=== PATIENT | male | born 1985 | race Caucasian/White ===

== ENCOUNTER 2019-01-05 11:26 | Emergency (ER) | payer SELFPAY ==
[2019-01-05] MEDS ORDERED: INSULIN -REGULAR HUMAN 50 UNIT/0.5 ML ML ONE (12:33)
[2019-01-05] MEDS ORDERED: ONDANSETRON 4 MG/2 ML VIAL ONE (12:33)
[2019-01-05] MEDS ORDERED: NA CHLORIDE 0.9% 1,000 ML ONE (12:33)
[2019-01-05 12:37] LABS: Absolute Lymphocytes (CBC) 1.6 K/uL (0.7-4.9); Basophils % 0.6 % (0-1.3); Lymphocytes % 18.6 % (15.3-44.8); MPV 9.9 fL (7.6-11.3); RBC Red Blood Cell Count 5.98 M/uL (4.33-5.43)
[2019-01-05 12:57] LABS: ALT/SGPT 29 U/L (12-78); AST/SGOT 17 U/L (15-37); Albumin 3.6 g/dL (3.4-5.0); Alkaline Phosphatase 113 U/L (45-117); BUN Blood Urea Nitrogen 14 mg/dL (7-18); Bicarbonate 26 mmol/L (21-32); Bilirubin Direct 0.2 mg/dL (0-0.2); Bilirubin Total 0.7 mg/dL (0.2-1.0); Glucose Level 363 mg/dL (74-106); Lipase 264 U/L (73-393); Potassium 4.2 mmol/L (3.5-5.1); Protein, Total 6.7 g/dL (6.4-8.2); Sodium Level 134 mmol/L (136-145)
[2019-01-05 12:59] LABS: Urine Blood NEGATIVE (NEG); Urine Glucose 2+ (NEG); Urine Protein NEGATIVE (NEG); Urine Specific Gravity 1.015 (1.005-1.030)
--- NOTE | 2019-01-05 14:20 | ER ---
Nurse's Notes [facility] Name: Max Perdomo Age: 33 yrs Sex: Male : 1985 Arrival Date: 01/05/2019 Time: 11:28 Bed 5 Private MD: Diagnosis: Hyperglycemia, unspecified Presentation: 01/05 11:48 Presenting complaint: Patient states: BS is high, over 600 at home, out of metformin iw and glimepride, was switched to some pens and ran out, has been out for about a week, was laid off work so he doesn't have insurance, feeling vomiting. Transition of care: patient was not received from another setting of care. Onset of symptoms was January 05, 2019. Risk Assessment: Do you want to hurt yourself or someone else? Patient reports no desire to harm self or others. Initial Sepsis Screen: Does the patient meet any 2 criteria? No. Patient's initial sepsis screen is negative. Does the patient have a suspected source of infection? No. Patient's initial sepsis screen is negative. Care prior to arrival: None. 11:48 Acuity: KAILA 2 iw 11:48 Method Of Arrival: Ambulatory iw Historical: - Allergies: 11:51 No Known Allergies; rv - PMHx: 11:51 Diabetes - IDDM; rv - PSHx: 11:51 None; rv - Immunization history:: Adult Immunizations not up to date. - Social history:: Smoking status: Patient uses tobacco products, smokes one pack cigarettes per day. - Ebola Screening: : Patient negative for fever greater than or equal to 101.5 degrees Fahrenheit, and additional compatible Ebola Virus Disease symptoms Patient denies exposure to infectious person Patient denies travel to an Ebola-affected area in the 21 days before illness onset No symptoms or risks identified at this time. Screenin:43 Abuse screen: Denies threats or abuse. Denies injuries from another. Nutritional ph screening: No deficits noted. Tuberculosis screening: No symptoms or risk factors identified. Fall Risk None identified. Assessment: 12:42 General: Appears in no apparent distress. uncomfortable, slender, well groomed, ph Behavior is calm, cooperative, appropriate for age, Denies fever. Pain: Complains of pain in abdomen. Neuro: Level of Consciousness is awake, alert, obeys commands, Oriented to person, place, time, situation. Cardiovascular: Capillary refill < 3 seconds in bilateral fingers Patient's skin is warm and dry. Respiratory: Airway is patent Respiratory effort is even, unlabored, Respiratory pattern is regular, symmetrical. GI: Reports lower abdominal pain, upper abdominal pain, nausea, vomiting, Patient currently denies diarrhea. Derm: Skin is intact, Skin is pink, warm \T\ dry. Musculoskeletal: Circulation, motion, and sensation intact. Range of motion: intact in all extremities. 12:50 Reassessment: order received for insulin IVP, see MAR, no insulin in Pyxis, pharmacy ph notified. 13:25 Reassessment: Patient appears in no apparent distress at this time. Patient and/or ph family updated on plan of care and expected duration. Pain level reassessed. Patient is alert, oriented x 3, equal unlabored respirations, skin warm/dry/pink. Attempted to pull insulin from pyxis, unable to retrieve d/t drawer malfunction, pharmacy notified. 14:50 Reassessment: Patient appears in no apparent distress at this time. Patient and/or ph family updated on plan of care and expected duration. Pain level reassessed. Patient is alert, oriented x 3, equal unlabored respirations, skin warm/dry/pink. BGL decreased to 270 after IV fluids, w/out insulin, preparing pt for d/c. Vital Signs: 11:51 BP 147 / 102; Pulse 71; Resp 16; Temp 98.1; Pulse Ox 100% on R/A; Weight 65.77 kg; iw Height 5 ft. 6 in. (167.64 cm); Pain 7/10; 12:44 BP 134 / 92; Pulse 56; Resp 20; Pulse Ox 100% on R/A; ph 14:15 BP 128 / 86; Pulse 61; Resp 16; Temp 97.6; Pulse Ox 99% on R/A; ph 11:51 Body Mass Index 23.40 (65.77 kg, 167.64 cm) iw ED Course: 11:28 Patient arrived in ED. rg4 11:50 Triage completed. rv 11:51 Arm band placed on. iw 11:52 Aliza Pfeiffer RN is Primary Nurse. ph 11:53 Jonnie Avila PA is PHCP. jr8 11:53 Sonny Rivera MD is Attending Physician. jr8 12:25 Initial lab(s) drawn, by me, sent to lab. Inserted saline lock: 20 gauge in right ph antecubital area, using aseptic technique. Blood collected. 12:44 Patient has correct armband on for positive identification. Bed in low position. Call ph light in reach. Side rails up X 1. cartoon animator on. Pulse ox on. NIBP on. Door closed. Noise minimized. Lights dimmed. Warm blanket given. Pillow given. Head of bed lowered. 15:00 No provider procedures requiring assistance completed. IV discontinued, intact, ph bleeding controlled, No redness/swelling at site. Pressure dressing applied. Administered Medications: 12:41 Drug: NS 0.9% 1000 ml Route: IV; Rate: 1000 ml; Site: right antecubital; ph 14:20 Follow up: Response: No adverse reaction; Blood sugar is lowered; IV Status: Completed ph infusion; IV Intake: 1000ml 12:41 Drug: Zofran 4 mg Route: IVP; Site: right antecubital; ph 13:30 Follow up: Response: No adverse reaction ph 14:59 Not Given (Physician Discretion): Insulin Regular Human 10 units IVP once iw Intake: 14:20 IV: 1000ml; Total: 1000ml. ph Outcome: 14:20 Discharge ordered by . jrSuhdeer 15:21 Patient left the ED. iw 15:21 Discharged to home ambulatory. ph 15:21 Condition: improved 15:21 Discharge instructions given to patient, Instructed on discharge instructions, follow up and referral plans. medication usage, Demonstrated understanding of instructions, follow-up care, medications, Prescriptions given X 2. Signatures: Rosanna Trujillo, JARED RN Jonnie Avila PA PA jr8 Aliza Pfeiffer RN RN Ramonita Patel rg4 Dereck Smith RN RN rv Corrections: (The following items were deleted from the chart) 57 11:48 Presenting complaint: Patient states: BS is high, over 600 at home, out of iw metformin and glimepride, was switched to some pens and ran out, has been out for about a week, was laid off work so he doesn't have insurance, feeling vomiting rv 11:57 11:48 Transition of care: patient was not received from another setting of care. rv iw 11:57 11:48 Onset of symptoms was January 05, 2019 [facility] 11:48 Initial Sepsis Screen: Does the patient meet any 2 criteria? No. Patient's iw initial sepsis screen is negative. Does the patient have a suspected source of infection? No. Patient's initial sepsis screen is negative. 11:48 Risk Assessment: Do you want to hurt yourself or someone else? Patient reports no iw desire to harm self or others. 11:48 Care prior to arrival: None. [facility] 11:48 Method Of Arrival: Ambulatory [facility] 11:48 Acuity: KAILA 2 [facility] 11:51 Ebola Screening: Patient negative for fever greater than or equal to 101.5 iw degrees Fahrenheit, and additional compatible Ebola Virus Disease symptoms Patient denies exposure to infectious person Patient denies travel to an Ebola-affected area in the 21 days before illness onset No symptoms or risks identified at this time 11:51 BP 147 / 102; Pulse 71bpm; Resp 16bpm; Pulse Ox 100% RA; Temp 98.1F; 65.77 kg; iw Height 5 ft. 6 in.; BMI: 23.4; Pain 7/10; rv 12:16 11:51 Social history: Smoking status: Patient uses tobacco products, smokes one pack iw cigarettes per day. 12 11:51 Immunization history: Adult Immunizations not up to date, [facility] 12:16 11:51 Arm band placed on [facility] 16:25 14:50 Reassessment: Patient appears in no apparent distress at this time. Patient ph and/or family updated on plan of care and expected duration. Pain level reassessed. Patient is alert, oriented x 3, equal unlabored respirations, skin warm/dry/pink. ph
--- NOTE | 2019-01-05 14:21 | EDPHYS ---
Physician Documentation [facility] Name: Max Perdomo Age: 33 yrs Sex: Male : 1985 Arrival Date: 01/05/2019 Time: 11:28 Bed 5 Private MD: ED Physician Sonny Rivera HPI: 01/05 12:09 This 33 yrs old Male presents to ER via Ambulatory with complaints of jr8 Diabetic Problem. 12:09 Onset: The symptoms/episode began/occurred gradually, 2 day(s) ago. Associated signs jr8 and symptoms: Pertinent positives: vomiting. Modifying factors: The patient symptoms are alleviated by nothing, the patient symptoms are aggravated by eating food. The patient has experienced a previous episode. The patient has not recently seen a physician. Patient with insulin dependent diabetes. Stated that he has not been regulating his glucose as well as he should be because he lost insurance recently. Stated that his sugar has read high for past couple of days. Not feeling well and wanted to be checked out . Historical: - Allergies: 11:51 No Known Allergies; rv - PMHx: 11:51 Diabetes - IDDM; rv - PSHx: 11:51 None; rv - Immunization history:: Adult Immunizations not up to date. - Social history:: Smoking status: Patient uses tobacco products, smokes one pack cigarettes per day. - Ebola Screening: : Patient negative for fever greater than or equal to 101.5 degrees Fahrenheit, and additional compatible Ebola Virus Disease symptoms Patient denies exposure to infectious person Patient denies travel to an Ebola-affected area in the 21 days before illness onset No symptoms or risks identified at this time. ROS: 12:09 Eyes: Negative for injury, pain, redness, and discharge, ENT: Negative for injury, jr8 pain, and discharge, Neck: Negative for injury, pain, and swelling, Cardiovascular: Negative for chest pain, palpitations, and edema, Respiratory: Negative for shortness of breath, cough, wheezing, and pleuritic chest pain, Back: Negative for injury and pain, MS/Extremity: Negative for injury and deformity, Skin: Negative for injury, rash, and discoloration, Neuro: Negative for headache, weakness, numbness, tingling, and seizure. 12:09 Abdomen/GI: Positive for abdominal pain, nausea and vomiting, Negative for diarrhea, constipation, abdominal cramps, abdominal distension. 12:09 Endocrine: Negative for polydipsia, polyphagia, polyuria. Exam: 12:09 Eyes: Pupils equal round and reactive to light, extra-ocular motions intact. Lids and jr8 lashes normal. Conjunctiva and sclera are non-icteric and not injected. Cornea within normal limits. Periorbital areas with no swelling, redness, or edema. ENT: Nares patent. No nasal discharge, no septal abnormalities noted. Tympanic membranes are normal and external auditory canals are clear. Oropharynx with no redness, swelling, or masses, exudates, or evidence of obstruction, uvula midline. Mucous membranes moist. Neck: Trachea midline, no thyromegaly or masses palpated, and no cervical lymphadenopathy. Supple, full range of motion without nuchal rigidity, or vertebral point tenderness. No Meningismus. Cardiovascular: Regular rate and rhythm with a normal S1 and S2. No gallops, murmurs, or rubs. Normal PMI, no JVD. No pulse deficits. Respiratory: Lungs have equal breath sounds bilaterally, clear to auscultation and percussion. No rales, rhonchi or wheezes noted. No increased work of breathing, no retractions or nasal flaring. Abdomen/GI: Soft, non-tender, with normal bowel sounds. No distension or tympany. No guarding or rebound. No evidence of tenderness throughout. Back: No spinal tenderness. No costovertebral tenderness. Full range of motion. Skin: Warm, dry with normal turgor. Normal color with no rashes, no lesions, and no evidence of cellulitis. MS/ Extremity: Pulses equal, no cyanosis. Neurovascular intact. Full, normal range of motion. Neuro: Awake and alert, GCS 15, oriented to person, place, time, and situation. Cranial nerves II-XII grossly intact. Motor strength 5/5 in all extremities. Sensory grossly intact. Cerebellar exam normal. Normal gait. Vital Signs: 11:51 BP 147 / 102; Pulse 71; Resp 16; Temp 98.1; Pulse Ox 100% on R/A; Weight 65.77 kg; iw Height 5 ft. 6 in. (167.64 cm); Pain 7/10; 12:44 BP 134 / 92; Pulse 56; Resp 20; Pulse Ox 100% on R/A; ph 14:15 BP 128 / 86; Pulse 61; Resp 16; Temp 97.6; Pulse Ox 99% on R/A; ph 11:51 Body Mass Index 23.40 (65.77 kg, 167.64 cm) iw MDM: 11:54 Patient medically screened. jr8 13:11 Differential diagnosis: Hyperglycemia, HHNK, DKA, dehydration, electrolyte jr8 abnormalities. Data reviewed: vital signs, nurses notes, lab test result(s). Data interpreted: Pulse oximetry: on room air is 100 %. Interpretation: normal. Counseling: I had a detailed discussion with the patient and/or guardian regarding: the historical points, exam findings, and any diagnostic results supporting the discharge/admit diagnosis, lab results, the need for outpatient follow up, a family practitioner, to return to the emergency department if symptoms worsen or persist or if there are any questions or concerns that arise at home. Response to treatment: the patient's symptoms have mildly improved after treatment, patient is well hydrated. ED course: glucose improved . 01/05 12:00 Order name: Basic Metabolic Panel; Complete Time: 13:37 8 01/05 12:00 Order name: CBC with Diff; Complete Time: 12:44 [facility] 01/05 12:00 Order name: Creatinine for Radiology; Complete Time: 12:54 8 01/05 12:00 Order name: Hepatic Function; Complete Time: 13:37 8 01/05 12:00 Order name: Lipase; Complete Time: 13:37 [facility] 01/05 12:00 Order name: Magnesium; Complete Time: 13:37 [facility] 01/05 12:00 Order name: IV Saline Lock; Complete Time: 12:49 [facility] 01/05 12:00 Order name: Ketone, Serum; Complete Time: 13:37 [facility] 01/05 12:11 Order name: Glucose, Ancillary Testing; Complete Time: 12:12 [facility]MS 01/05 12:12 Order name: Urine Dipstick--Ancillary (enter results); Complete Time: 13:11 01/05 14:30 Order name: Glucose, Ancillary Testing; Complete Time: 14:35 [facility] 01/05 12:00 Order name: Labs collected and sent; Complete Time: 12:49 [facility] 01/05 12:00 Order name: Urine Dipstick-Ancillary (obtain specimen); Complete Time: 12:11 [facility] 01/05 14:07 Order name: Glucose Level; Complete Time: 14:30 jr8 Administered Medications: 12:41 Drug: NS 0.9% 1000 ml Route: IV; Rate: 1000 ml; Site: right antecubital; ph 14:20 Follow up: Response: No adverse reaction; Blood sugar is lowered; IV Status: Completed ph infusion; IV Intake: 1000ml 12:41 Drug: Zofran 4 mg Route: IVP; Site: right antecubital; ph 13:30 Follow up: Response: No adverse reaction ph 14:59 Not Given (Physician Discretion): Insulin Regular Human 10 units IVP once iw Disposition: 15:46 Co-signature as Attending Physician, Sonny Rivera MD. rn Disposition: 01/05/19 14:20 Discharged to Home. Impression: Hyperglycemia, unspecified. - Condition is Stable. - Discharge Instructions: Hyperglycemia, Blood Glucose Monitoring, Adult. - Prescriptions for Metformin 500 mg Oral Tablet - take 1 tablet by ORAL route 2 times per day .; 30 tablet. Glimepiride 2 mg Oral Tablet - take 1 tablet by ORAL route once daily; 30 tablet. - Medication Reconciliation Form, Thank You Letter, Antibiotic Education, Prescription Opioid Use form. - Follow up: Private Physician; When: 2 - 3 days; Reason: Recheck today's complaints, Continuance of care, Re-evaluation by your physician. - Problem is new. - Symptoms have improved. Signatures: Dispatcher [employer] Rosanna Menendez RN RN iw Nieto, Roman, MD MD rn Roszak, Josh, PA PA jr8 Aliza Pfeiffer RN RN Dereck Smith RN RN rv Corrections: (The following items were deleted from the chart) 11:58 11:51 Ebola Screening: Patient negative for fever greater than or equal to 101.5 iw degrees Fahrenheit, and additional compatible Ebola Virus Disease symptoms Patient denies exposure to infectious person Patient denies travel to an Ebola-affected area in the 21 days before illness onset No symptoms or risks identified at this time rv 12:16 11:51 Social history: Smoking status: Patient uses tobacco products, smokes one pack iw cigarettes per day. rv 12:16 11:51 Immunization history: Adult Immunizations not up to date, rv iw 15:21 14:20 01/05/2019 14:20 Discharged to Home. Impression: Hyperglycemia, unspecified. iw Condition is Stable. Forms are Medication Reconciliation Form, Thank You Letter, Antibiotic Education, Prescription Opioid Use. Follow up: Private Physician; When: 2 - 3 days; Reason: Recheck today's complaints, Continuance of care, Re-evaluation by your physician. Problem is new. Symptoms have improved. jr8
[2019-01-05 15:41] VITALS: TEMP 98.1; O2SAT 100
[2019-01-05 15:43] VITALS: BP 134/92
== END 2019-01-05 15:21 | disposition home or self-care (01) ==
LOC: ER 11:26
DX: E11.65 Type 2 diabetes mellitus with hyperglycemia (principal); F17.210 Nicotine dependence, cigarettes, uncomplicated
CPT/HCPCS: 36415; 80048; 80076; 81003; 82010; 82947; 83690; 83735; 85025; 96361; 96374; 99284; J2405; J7030

== ENCOUNTER 2020-01-29 14:41 | Emergency (ER) | payer SELFPAY ==
--- OUTSIDE RECORDS SUMMARY | 2020-01-29 14:42 | XMS REPORT | Summary of Care ---
:1985 Author Organization [facility] Address [address] [place] [address] Care Team Providers Name Role Phone Pcp, Does Not Have A Primary Care Provider Encounter Details Date Type Department Care Team Description 01/25/2020 Orders Only [facility] Doctor Unassigned, No [address] [facility] [place] [address] [address] [place] [address] Allergies No Known Allergiesdocumented as of this encounter (statuses as of 01/25/2020) Medications Medication Sig Dispensed Refills Start Date End Date Status sulfamethoxazole-tri Take 1 tablet by 20 tablet 0 07/19/2016 Active methoprim 800-160 mg mouth every 12 per tablet (twelve) hours. mupirocin Apply to affected area(s) 3 (three) times daily. Apply under nails and in nostrils. 1 Tube 0 07/19/2016 Active (BACTROBAN) 2 % This medication is for frequ ent recurrent skin infections in a diabetic. cream documented as of this encounter (statuses as of 01/25/2020) Active Problems No known active problemsdocumented as of this encounter (statuses as of 01/25/2020) Social History Tobacco Use Types Packs/Day Years Used Date Never Assessed Sex Assigned at Date Recorded Not on file documented as of this encounter Last Filed Vital Signs Not on filedocumented in this encounter Plan of Treatment Health Maintenance Due Date Last Done Comments VARICELLA VACCINES ( of 2 - 11/22/1984 2-dose childhood series) Depression Screening 1995 DTaP,Tdap,and Td Vaccines (1 - 11/22/2002 Tdap) INFLUENZA VACCINE (#1) 2019 PNEUMOCOCCAL 0-64 YEARS COMBINED Aged Out No longer eligible based on SERIES patient's age to complete this topic documented as of this encounter Procedures Procedure Name Priority Date/Time Associated Diagnosis Comme nts CONSENT/REFUSAL FOR Routine 01/25/2020 10:16 AM ROLL OUT MANAGER DIAGNOSIS AND TREATMENT documented in this encounter Results Not on filedocumented in this encounter Insurance Payer Benefit Plan / Group Subscriber ID Effective Dates Phone Address Type ANDREW MORALES II [id number] 2016-Present H [place]/PPO/POS documented as of this encounter
--- OUTSIDE RECORDS SUMMARY | 2020-01-29 14:42 | XMS REPORT | Continuity of Care Document ---
:1985 Author Organization [facility] t Address [address] [place] [address] Care Team Providers Name Role Phone [place] Attending Clinician Doctor Unassigned, Name Attending Clinician Unavailable Problems This patient has no known problems. Allergies, Adverse Reactions, Alerts This patient has no known allergies or adverse reactions. Medications This patient has no known medications. Procedures This patient has no known procedures. Encounters Start End Encounter Admission Attending Care Care Encounter Source Date/Time Date/Time Type Type Clinicians Facility Department ID 2020-01-25 2020-01-25 Emergency Singer [facility] [id number] 10:29:00 14:32:00 [place] [id number] [place] [id number] [place] [id number] 2020-01-25 2020-01-25 Orders Doctor [facility] [id number] 00:00:00 00:00:00 Only UnassignedJASON [id number] [place] [facility] [id number] Results This patient has no known results.
--- OUTSIDE RECORDS SUMMARY | 2020-01-29 14:43 | XMS REPORT | Summary of Care ---
:1985 Author Organization [facility] - [facility] Address [address] [place] [id number] Care Team Providers Name Role Phone Pcp, Does Not Have A Primary Care Provider Reason for Referral MRI/CAT Scan (STAT) Status Reason Specialty Diagnoses / Referred By Referred To Procedures Contact Contact New Request Diagnostic Diagnoses Right upper quadrant abdominal pain Holden Jefferson, Radiology Procedures CT ABDOMEN PELVIS W CONTRAST DO [address] [place] [address] [place] [address] Reason for Visit Reason Comments Abdominal Pain Vomiting Auth/Cert Status Reason Specialty Diagnoses / Referred By Referred To Procedures Contact Contact Emergency Medicine [facility] Em ergency Dept [address] [place] [address] Fax: Encounter Details Date Type Department Care Team Description 01/25/2020 Emergency [facility]-Emergency Holden Jefferson DO Influenza A (Primary Dx); Department [address] [place] [address] Right upper quadrant abdominal pain [address] [facility] RT [address] [place] [id number] [place] [address] [phone] Allergies No Known Allergiesdocumented as of this encounter (statuses as of 01/25/2020) Medications Medication Sig Dispensed Refills Start Date End Date Status sulfamethoxazole-trime Take 1 tablet by 20 tablet 0 07/19/2016 Active thoprim 800-160 mg per mouth every 12 tablet (twelve) hours. mupirocin (BACTROBAN) Apply to affected area(s) 3 (three) times daily. Apply under nails and in nostrils. 1 Tube 0 07/19/2016 Active 2 % cream This medication is for frequ ent recurrent skin infections in a diabetic. ondansetron 4 mg Take 1 tablet by 20 tablet 0 01/25/2020 Active disintegrating mouth every 8 tabletIndications: (eight) hours as Influenza A needed for Nausea and Vomiting (N/V). documented as of this encounter (statuses as of 01/25/2020) Active Problems No known active problemsdocumented as of this encounter (statuses as of 01/25/2020) Social History Tobacco Use Types Packs/Day Years Used Date Never Assessed Sex Assigned at Date Recorded Not on file COVID-19 Exposure Response Date Recorded In the last month, have you been in contact with No / Unsure 01/25/2020 10:26 AM AROMATHERAPIST someone who was confirmed or suspected to have Coronavirus / COVID-19? documented as of this encounter Last Filed Vital Signs Vital Sign Reading Time Taken Comments Blood Pressure 111/75 01/25/2020 2:00 PM AROMATHERAPIST Pulse 81 01/25/2020 2:00 PM AROMATHERAPIST Temperature 37.1 C (98.7 F) 01/25/2020 10:28 AM AROMATHERAPIST Respiratory Rate 16 01/25/2020 2:00 PM AROMATHERAPIST Oxygen Saturation 98% 01/25/2020 2:00 PM AROMATHERAPIST Inhaled Oxygen Concentration - - Weight 63.5 kg (140 lb) 01/25/2020 10:28 AM AROMATHERAPIST Height - - Body Mass Index 22.6 07/23/2018 4:04 PM CDT documented in this encounter Discharge Instructions Holden Mcclelland DO - 01/25/2020 DIAGNOSIS Diagnoses that have been ruled out: None Diagnoses that are still under consideration: None Final diagnoses: Right upper quadrant abdominal pain Influenza A NO LIFE-THREATENING FINDINGS ON TODAY'S EXAM. PROCEDURES IN THE ER TODAY: Orders Placed This Encounter Procedures CT ABDOMEN PELVIS W CONTRAST Complete Metabolic Panel CBC with Differential Lipase, Serum Urinalysis COVID-19 (ID NOW RAPID TESTING) LAB ONLY COVID INTERPRETATION ADC,CLC OR LCC ONLY - INFLUENZA A & B DIRECT ANTIGEN MEDICATIONS ADMINISTERED IN THE ER TODAY AND DISCHARGE MEDICATIONS: Orders Placed This Encounter Medications sodium chloride (NS) injection 5 mL morpHINE injection 4 mg ondansetron (ZOFRAN (PF)) injection 4 mg iohexol (OMNIPAQUE 350 BULK-150 mL) injection 120 mL FOLLOW-UP RECOMMENDATIONS: RECOMMEND FOLLOW-UP WITH A PRIMARY CARE PROVIDER OR SPECIALIST IN 2-5 DAYS, ESPECIALLY IF NO IMPROVEMENT IN SYMPTOMS. MAY FOLLOW-UP WITH A PROVIDER OF YOUR CHOICE, SUCH : 1. A PHYSICIAN OF YOUR CHOICE 2. [facility], . LOCATIONS IN [facility] 3. [facility], [address], [place]; [phone] OR, IF YOU WISH TO FOLLOW-UP WITHIN THE [facility], MAY TRY THESE OPTIONS (CLINIC APPOINTMENTS AVAILABLE ON BIOV-VT-MGLU BASIS): 1. SCHEDULE AN APPOINTMENT ONLINE AT [email or web address][facility] 2. OR CALL THE [facility] AT OR 3. OR CALL YOUR [facility] PHYSICIAN'S OFFICE DIRECTLY IF YOU ARE ALREADY AN ESTABLISHED [facility] PATIENT. RETURN TO ER FOR WORSENING OF SYMPTOMS. AttachmentsThe following attachments cannot be sent through Care Everywhere. (Adult), Influenza (Portuguese)documented in this encounter ED Notes Jamilah Alvarez RN - 01/25/2020 10:27 AM CSTPatient c/o RUQ pain with vomiting x2 days. 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 Onset is been over last 3 to 4 days. Patient additionally states that he is not had a bowel movement in the last week. He does not associate it with food. Concerned about possible gallstone or coronavirus. Patient is a type II diabetic on insulin. Past Medical History / Immunizations No past medical history on file. Tetanus received in last 5 years: Yes Childhood immunizations: Up-to-date Past Surgical History No past surgical history on file. Allergies No Known Allergies Social History Substance & Sexual Activity No substance use or sexual activity history on file. Review of Systems Review of Systems Constitutional: Positive for activity change, fatigue and fever. HENT: Negative for sore throat. Respiratory: Negative for cough and shortness of breath. Gastrointestinal: Positive for abdominal pain, nausea and vomiting. Negative for diarrhea. Genitourinary: Negative for dysuria. Skin: Negative for rash. Neurological: Negative for headaches. Physical Exam BP 112/67 | Pulse 86 | Temp 37.1 C (98.7 F) (Oral) | Resp 16 | Wt 63.5 kg (140 lb) | SpO2 99% | BMI 22.60 kg/m Physical Exam Vitals signs and nursing note reviewed. Constitutional: Appearance: He is well-developed. HENT: Head: Normocephalic and atraumatic. Eyes: General: No scleral icterus. Conjunctiva/sclera: Conjunctivae normal. Pupils: Pupils are equal, round, and reactive to light. Neck: Musculoskeletal: Normal range of motion and neck supple. Vascular: No JVD. Cardiovascular: Rate and Rhythm: Normal rate and regular rhythm. Heart sounds: Normal heart sounds. Pulmonary: Effort: Pulmonary effort is normal. Breath sounds: Normal breath sounds. No stridor. Abdominal: General: Bowel sounds are normal. Palpations: Abdomen is soft. Tenderness: There is abdominal tenderness in the right upper quadrant. Musculoskeletal: Normal range of motion. Skin: General: Skin is warm and dry. Neurological: Mental Status: He is alert and oriented to person, place, and time. Psychiatric: Behavior: Behavior normal. Thought Content: Thought content normal. Labs Recent Results (from the past 24 hour(s)) Complete Metabolic Panel Collection Time: 01/25/20 11:00 AM Result Value Ref Range NA 137 135 - 145 mmol/L K 4.7 3.5 - 5.0 mmol/L CL 96 (L) 98 - 108 mmol/L CO2 TOTAL 24 23 - 31 mmol/L AGAP 17 (H) 2 - 16 BUN 18 7 - 23 mg/dL GLUCOSE 363 (H) 70 - 110 mg/dL CREATININE 0.66 0.60 - 1.25 mg/dL TOTAL BILI 1.0 0.1 - 1.1 mg/dL CALCIUM 9.7 8.6 - 10.6 mg/dL T PROTEIN 7.7 6.3 - 8.2 g/dL ALBUMIN 4.8 3.5 - 5.0 g/dL ALK PHOS 112 34 - 122 U/L ALTv 29 5 - 50 U/L AST(SGOT) 21 13 - 40 U/L eGFR Calculation (Non-) 136.6 mL/min/1.73m2 eGFR Calculation () 165.5 mL/min/1.73m2 CBC with Differential Collection Time: 01/25/20 11:00 AM Result Value Ref Range WBC 11.30 (H) 4.20 - 10.70 10*3/L RBC 6.07 (H) 4.26 - 5.52 10*6/L HGB 17.3 (H) 12.2 - 16.4 g/dL HCT 50.4 (H) 38.4 - 49.3 % MCV 83.0 81.7 - 95.6 fL MCH 28.5 26.1 - 32.7 pg MCHC 34.3 31.2 - 35.0 g/dL RDW-SD 39.7 38.5 - 51.6 fL RDW-CV 13.1 12.1 - 15.4 % PLT 298 150 - 328 10*3/L MPV 11.0 9.8 - 13.0 fL NRBC/100 WBC 0.0 0.0 - 10.0 /100 WBCs NRBC x10^3 <0.01 10*3/L GRAN MAT (NEUT) % 76.5 % IMM GRAN % 0.80 % LYMPH % 19.0 % MONO % 3.3 % EOS % 0.0 % BASO % 0.4 % GRAN MAT x10^3(ANC) 8.65 (H) 1.99 - 6.95 10*3/uL IMM GRAN x10^3 0.09 (H) 0.00 - 0.06 10*3/uL LYMPH x10^3 2.15 1.09 - 3.23 10*3/uL MONO x10^3 0.37 0.36 - 1.02 10*3/uL EOS x10^3 <0.03 (L) 0.06 - 0.53 10*3/uL BASO x10^3 0.04 0.01 - 0.09 10*3/uL Lipase, Serum Collection Time: 01/25/20 11:00 AM Result Value Ref Range LIPASE 35 0 - 220 U/L Urinalysis Collection Time: 01/25/20 11:01 AM Result Value Ref Range APPEARANCE Clear Clear COLOR Yellow Yellow PH 5.0 4.8 - 8.0 SP GRAVITY 1.033 (H) 1.003 - 1.030 GLU U QUAL 500 mg/dL (A) Normal BLOOD Negative Negative KETONES 80 mg/dL (A) Negative PROTEIN Negative Negative UROBILIN Normal Normal BILIRUBIN Negative Negative NITRITE Negative Negative LEUK MINESH Negative Negative RBC/HPF 2 0 - 3 HPF WBC/HPF 3 0 - 5 HPF BACTERIA Negative Negative HYAL CAST 1 <=2 LPF COVID-19 (ID NOW RAPID TESTING) Collection Time: 01/25/20 11:05 AM Specimen: NASOPHARYNGEAL SWAB Result Value Ref Range SARS-CoV-2 Rapid ID NOW Not Detected Not Detected ADC,CLC OR LCC ONLY - INFLUENZA A & B DIRECT ANTIGEN Collection Time: 01/25/20 1:19 PM Specimen: NASOPHARYNGEAL SWAB Result Value Ref Range Influenza A Positive (A) Negative Influenza B Negative Negative Imaging [facility] Encounter on 01/25/20 CT ABDOMEN PELVIS W CONTRAST Narrative CT Abdomen and Pelvis with intravenous contrast. CLINICAL HISTORY: Abdominal infection including peritonitis. DOSE: Up-to-date CT equipment and radiation dose reduction techniques were employed. CTDIvol: 4.60 mGy. DLP: 216 mGy-cm. TECHNIQUE : Contiguous axial imaging from the level of the lung bases through the pubic symphysis were performed after the uncomplicated administration of Omnipaque contrast material. Coronal and sagittal reconstructions were obtained. Auto mA and/or iterative reconstruction were used to reduce radiation dose. FINDINGS: Lower lungs: Clear. Liver, Gallbladder and Spleen: Liver is 16.2 cm and appears normal. Spleen is 11.5 x 4.9 cm and appears normal. No calcified gallstones. Biliary ducts and the pancreatic duct appear of normal size. Peritoneum: No free air or free fluid. No lymphadenopathy. Pancreas and Adrenals: Unremarkable pancreas and adrenal glands. Kidneys and Ureters: No visible calculi in the renal collecting systems. No hydroureter or hydronephrosis. Vessels: Normal. Retroperitoneum: No abnormal fluid or lymphadenopathy. Bowel: Mild constipation. Normal appendix is visualized. No acute findings in small bowel. Bladder and Reproductive Organs: Unremarkable unopacified urinary bladder. Bones: Old trauma with prominent Schmorl's node in the upper plate of L1 and lower plate of L3. No acute findings. Small bone island noted in the head of the left femur, left acetabulum regions. Soft tissues: Unremarkable. CONCLUSION: No acute intra-abdominal or pelvic abnormalities detected. Orders and Treatments Orders Placed This Encounter Procedures CT ABDOMEN PELVIS W CONTRAST Complete Metabolic Panel CBC with Differential Lipase, Serum Urinalysis COVID-19 (ID NOW RAPID TESTING) LAB ONLY COVID INTERPRETATION ADC,CLC OR LCC ONLY - INFLUENZA A & B DIRECT ANTIGEN Orders Placed This Encounter Medications sodium chloride (NS) injection 5 mL morpHINE injection 4 mg ondansetron (ZOFRAN (PF)) injection 4 mg iohexol (OMNIPAQUE 350 BULK-150 mL) injection 120 mL ondansetron 4 mg disintegrating tablet Procedures See ED Procedure Note Notes & MDM Patient was evaluated for an emergency medical condition related to Abdominal Pain and Vomiting . Differential diagnoses considered by presenting complaints but not limited to: Cholecystitis, acute viral syndrome, influenza, infection not otherwise specified, metabolic derangements, and others.. ED Course as of Jan 24 135 Wed Jan 25, 2020 1349 Influenza A(!): Positive [PS] ED Course User Index [PS] Holden Jefferson DO Labs:were ordered, and resulted, any relevant abnormalities were considered. Imaging:Ordered, and resulted, any relevant abnormalities were considered. IV fluids: not indicated Procedures:were not performed. Assessment: 34-year-old male presenting with multiple complaints consistent with acute viral syndrome. Coronavirus test is negative. Influenza A positive. CT scan does not demonstrate acute cholecystitis and hehas normal liver function. Patient to be discharged with supportive care. Zofran for prescription. Patient stable for discharge. Vital signs normal in the emergency department. Return precautions given if symptoms worsen as document in the discharge instructions. History, physical exam findings, results of visit, differential diagnosis, medication regimens and plan of future care have been considered. Additional MDM may be found in the ED course. Differential diagnosis considered and final disposition made based on information gathered during evaluation and may not be completely ruled out or specifically listed. Vital signs were rechecked before final disposition and determined to be stable. Diagnosis ICD-10-CM ICD-9-CM 1. Influenza A J10.1 487.1 2. Right upper quadrant abdominal pain R10.11 789.01 Disposition & Follow Up ED Disposition ED Disposition Condition Comment Disch - Home Stable Patient's Medications START taking these medications ONDANSETRON 4 MG DISINTEGRATING TABLET Take 1 tablet by mouth every 8 (eight) hours as needed for Nausea and Vomiting (N/V). CONTINUE taking these medications which have NOT CHANGED MUPIROCIN (BACTROBAN) 2 % CREAM Apply to affected area(s) 3 (three) times daily. Apply under nails and in nostrils. This medication is for frequent recurrent skin infections in a diabetic. SULFAMETHOXAZOLE-TRIMETHOPRIM 800-160 MG PER TABLET Take 1 tablet by mouth every 12 (twelve) hours. START taking Modified Medications as Prescribed No medications on file STOP taking these medications No medications on file Contact information for follow-up ADC-Emergency Department Specialty: Emergency Medicine [address] [place] [id number] Instructions: If symptoms worsen as documented in the discharge Holden Jefferson DO 01/25/2020 11:18 AM ACTIVE COVID-19 PANDEMIC. documented in this encounter Miscellaneous Notes ED Nurse Note - Laverne Carrington RN - 01/25/2020 2:28 PM CSTPt given printed and verbal discharge instructions regarding Influenza A, Right upper quadrant abdominal, encouraged hydration, Prescriptions provided Zofran Discussed ibuprofen and to take with food to avoid GI distress. Pt verbalized understanding of instructions, pt awake alert oriented, resp reg unlabored, skin w/d, color appropriate for race, moves all ext well,pt encouraged to follow up with PCP or ER if worseningsigns and symptoms. Advised to seek medical attention for new/prolonged/worsening of symptoms, Symptoms increase signs of infection. No adverse reaction to meds given in ER noted upon discharge PIV d'cd, dressing to site, catheter in tact. Awake, alert oriented, resp reg unlabored, skin w/d, pt leaving amb with steady gait, in no apparent distress, ATHERAPIST documented in this encounter Plan of Treatment Name Type Priority Associated Diagnoses Date/Ti me LAB ONLY COVID LAB STAT Right upper quadrant 01/24 11:05 AM INTERPRETATION abdominal pain AROMATHERAPIST Name Type Priority Associated Diagnoses Order S chedule LAB ONLY COVID LAB Routine Right upper quadrant ONCE for 1 Occurrences INTERPRETATION abdominal pain starting until 0 Health Maintenance Due Date Last Done Comments VARICELLA VACCINES (1 of 2 - 11/22/1984 2-dose childhood series) Depression Screening 1995 DTaP,Tdap,and Td Vaccines (1 - 11/22/2002 Tdap) INFLUENZA VACCINE (#1) 2019 PNEUMOCOCCAL 0-64 YEARS COMBINED Aged Out No longer eligible based on SERIES patient's age to complete this topic documented as of this encounter Procedures Procedure Name Priority Date/Time Associated Comments Diagnosis ADC,CLC OR LCC ONLY STAT 01/25/2020 1:19 PM Right upper R esults for this - INFLUENZA A & B AROMATHERAPIST quadrant abdominal proc edure are in DIRECT ANTIGEN pain the results section. CT ABDOMEN PELVIS W STAT 01/25/2020 12:10 PM Right upper R esults for this CONTRAST AROMATHERAPIST quadrant abdominal procedure are in pain the results section. COVID-19 (ID NOW STAT 01/25/2020 11:05 AM Right upper Resu lts for this RAPID TESTING) AROMATHERAPIST quadrant abdominal procedu re are in pain the results section. URINALYSIS STAT 01/25/2020 11:01 AM Right upper Results for this AROMATHERAPIST quadrant abdominal procedure are in pain the results section. CBC WITH DIFF STAT 01/25/2020 11:00 AM Right upper Results for this AROMATHERAPIST quadrant abdominal procedure are in pain the results section. COMP. METABOLIC STAT 01/25/2020 11:00 AM Right upper Resul ts for this PANEL (80124) AROMATHERAPIST quadrant abdominal procedur e are in pain the results section. LIPASE STAT 01/25/2020 11:00 AM Right upper Results for this AROMATHERAPIST quadrant abdominal procedure are in pain the results section. NOTICE OF PRIVACY Routine 01/25/2020 10:17 AM PRACTICES AROMATHERAPIST documented in this encounter Results ADC,CLC OR LCC ONLY - INFLUENZA A & B DIRECT ANTIGEN (01/25/2020 1:19 PM AROMATHERAPIST) Pathologist Sig nature Influenza A Positive (A) Negative [facility] Influenza B Negative Negative [facility] Specimen Swab - NASOPHARYNGEAL SWAB Performing Organization Address City/State/Zipcode Phone Number [facility] CLIA: [id number] [place] [address] ABDOMEN PELVIS W CONTRAST (01/25/2020 12:10 PM AROMATHERAPIST) Specimen Narrative Performed At CT Abdomen and Pelvis with intravenous c ontrast. PACS/VR/DOSE CLINICAL HISTORY: Abdominal infection in cluding peritonitis. DOSE: Up-to-date CT equipment and radiation dose reduc tion techniques were employed. CTDIvol: 4.60 mGy. DLP: 216 mGy-cm. TECHNIQUE : Contiguous axial imaging fro m the level of the lung bases through the pubic symphysis were perform ed after the uncomplicated administration of Omnipaque contrast mat erial. Coronal and sagittal reconstructions were obtained. Auto mA and/or iterativ e reconstruction were used to reduce radiation dose. FINDINGS: Lower lungs: Clear. Liver, Gallbladder and Spleen: Liver is 16.2 cm and ap pears normal. Spleen is 11.5 x 4.9 cm and appears normal. No calcified gall stones. Biliary ducts and the pancreatic duct appear of normal size. Peritoneum: No free air or free fluid. No lymphadenopathy. Pancreas and Adrenals: Unremarkable pa ncreas and adrenal glands. Kidneys and Ureters: No visible calculi in the renal collecting systems. No hydroureter or hydronephrosis. Vessels: Normal. Retroperitoneum: No abnormal fluid or ly mphadenopathy. Bowel: Mild constipation. Normal appendix is visualize d. No acute findings in small bowel. Bladder and Reproductive Organs: Unremarkable unopacif ied urinary bladder. Bones: Old trauma with prominent Schmorl 's node in the upper plate of L1 and lower plate of L3. No acute findings . Small bone island noted in the head of the left femur, left acetabulum regions. Soft tissues: Unremarkable. CONCLUSION: No acute intra-abdominal or pelvic abnormalities detected. Procedure Note [facility], Radiant Results Inft User - 2019 12:[address] Abdomen and Pelvis with intravenous contrast. CLINICAL HISTORY: Abdominal infection in cluding peritonitis. DOSE: Up-to-date CT equipment and radiat ion dose reduction techniques were employed. CTDIvol: 4.60 mGy. DLP: 216 mGy-cm. TECHNIQUE : Contiguous axial imaging fro m the level of the lung bases through the pubic symphysis were perform ed after the uncomplicated administration of Omnipaque contrast mat erial. Coronal and sagittal reconstructions were obtained. Auto mA a nd/or iterative reconstruction were used to reduce radiation dose. FINDINGS: Lower lungs: Clear. Liver, Gallbladder and Spleen: Liver is 16.2 cm and appears normal. Spleen is 11.5 x 4.9 cm and appears normal. No calcified gallstones. Biliary ducts and the pancreatic duct appear of normal size. Peritoneum: No free air or free fluid. No lymphadenopathy. Pancreas and Adrenals: Unremarkable szymanski creas and adrenal glands. Kidneys and Ureters: No visible calculi in the renal collecting systems. No hydroureter or hydronephrosis. Vessels: Normal. Retroperitoneum: No abnormal fluid or ly mphadenopathy. Bowel: Mild constipation. Normal appendi x is visualized. No acute findings in small bowel. Bladder and Reproductive Organs: Unremar kable unopacified urinary bladder. Bones: Old trauma with prominent Schmorl 's node in the upper plate of L1 and lower plate of L3. No acute findings . Small bone island noted in the head of the left femur, left acetabulum regions. Soft tissues: Unremarkable. CONCLUSION: No acute intra-abdominal or pelvic abnormalities detected. Performing Organization Address City/State/Zipcode Phone Number PACS/VR/DOSE COVID-19 (ID NOW RAPID TESTING) (01/25/2020 11:05 AM AROMATHERAPIST) SARS-CoV-2 Rapid ID Not Detected Not Detected [facility] Specimen Swab - NASOPHARYNGEAL SWAB Narrative Performed At [facility] NOW COVID-19 Assay is an isothermal nucleic [facility] acid amplification test intended for the qualitative detection of nucleic acid from SARS-CoV-2 viral RNA in nasopharyngeal (TRANSFER ENGINEER) specimens. It is used under Emergency Use Authorization (EUA) by FDA. The limit of detection (LOD) of the assay is 125 Genome Equivalents/mL. A positive result is indicative of the presence of SARS-CoV-2 RNA. Clinical correlation with patient history and other diagnostic information is necessary to determine patient infection status. A negative (Not Detected) result does not preclude SARS-CoV-2 infection. In patients with clinical symptoms and other tests that are consistent with SARS-CoV-2 infection, negative results should be treated as presumptive negative and a new specimen should be tested with alternative PCR molecular test. Invalid: Please collect a new specimen for repeat patient testing if clinically indicated. Performing Organization Address [facility] Phone Number [facility] CLIA: [id number] [place] [address] Urinalysis (01/25/2020 11:01 AM AROMATHERAPIST) Pathologist Sig nature APPEARANCE Clear Clear [facility] COLOR Yellow Yellow [facility] PH 5.0 4.8 - 8.0 [facility] SP GRAVITY 1.033 (H) 1.003 - 1.030 [facility] GLU U QUAL 500 mg/dL (A) Normal [facility] BLOOD Negative Negative [facility] KETONES 80 mg/dL (A) Negative [facility] PROTEIN Negative Negative [facility] UROBILIN Normal Normal [facility] BILIRUBIN Negative Negative [facility] NITRITE Negative Negative [facility] LEUK MINESH Negative Negative [facility] RBC/HPF 2 0 - 3 HPF [facility] WBC/HPF 3 0 - 5 HPF [facility] BACTERIA Negative Negative [facility] HYAL CAST 1 <=2 LPF [facility] Specimen Urine - URINE, CLEAN CATCH Performing Organization Address [facility] Phone Number [facility] CLIA: [id number] [place] [address] [place] [address] Lipase, Serum (01/25/2020 11:00 AM AROMATHERAPIST) [facility] LIPASE 35 0 - 220 U/L [facility] LABORATORY Specimen Blood - VENOUS Performing Organization Address City/[facility]/Zipcode Phone Number [facility] CLIA: [id number] [place] [address] [place] [address] CBC with Differential (01/25/2020 11:00 AM AROMATHERAPIST) Pathologist Sig nature WBC 11.30 (H) 4.20 - 10.70 [facility] 10*3/L HOSPITAL LABORATORY RBC 6.07 (H) 4.26 - 5.52 [facility] 10*6/L HOSPITAL LABORATORY HGB 17.3 (H) 12.2 - 16.4 [facility] g/dL HOSPITAL LABORATORY HCT 50.4 (H) 38.4 - 49.3 % [facility] MCV 83.0 81.7 - 95.6 fL [facility] MCH 28.5 26.1 - 32.7 pg [facility] MCHC 34.3 31.2 - 35.0 [facility] g/dL [facility] RDW-SD 39.7 38.5 - 51.6 fL [facility] RDW-CV 13.1 12.1 - 15.4 % [facility] PLT 298 150 - 328 [facility] 10*3/L [facility] MPV 11.0 9.8 - 13.0 fL [facility] NRBC/100 WBC 0.0 0.0 - 10.0 /100 [facility] WBCs [facility] NRBC x10^3 <0.01 10*3/L [facility] LAB[facility] GRAN MAT (NEUT) % 76.5 % [facility] IMM GRAN % 0.80 % [facility] LYMPH % 19.0 % [facility] MONO % 3.3 % [facility] EOS % 0.0 % [facility] BASO % 0.4 % [facility] GRAN MAT x10^3(ANC) 8.65 (H) 1.99 - 6.95 [facility] 10*3/uL HOSPITAL LABORATORY IMM GRAN x10^3 0.09 (H) 0.00 - 0.06 [facility] 10*3/uL HOSPITAL LABORATORY LYMPH x10^3 2.15 1.09 - 3.23 [facility] 10*3/uL HOSPITAL LABORATORY MONO x10^3 0.37 0.36 - 1.02 [facility] 10*3/uL HOSPITAL LABORATORY EOS x10^3 <0.03 (L) 0.06 - 0.53 [facility] 10*3/uL HOSPITAL LABORATORY BASO x10^3 0.04 0.01 - 0.09 [facility] 10*3/uL HOSPITAL LABORATORY Specimen Blood - VENOUS Performing Organization Address City/State/Zipcode Phone Number [facility] CLIA: [id number] [place] [address] Complete Metabolic Panel (01/25/2020 11:00 AM AROMATHERAPIST) [facility] NA 137 135 - 145 [facility] mmol/L [facility] K 4.7 3.5 - 5.0 [facility] mmol/L [facility] CL 96 (L) 98 - 108 mmol/L [facility] CO2 TOTAL 24 23 - 31 mmol/L [facility] AGAP 17 (H) 2 - 16 [facility] BUN 18 7 - 23 mg/dL [facility] GLUCOSE 363 (H) 70 - 110 mg/dL [facility] CREATININE 0.66 0.60 - 1.25 [facility] mg/dL [facility] TOTAL BILI 1.0 0.1 - 1.1 mg/dL [facility] CALCIUM 9.7 8.6 - 10.6 [facility] mg/dL [facility] T PROTEIN 7.7 6.3 - 8.2 g/dL [facility] ALBUMIN 4.8 3.5 - 5.0 g/dL [facility] ALK PHOS 112 34 - 122 U/L [facility] ALTv 29 5 - 50 U/L [facility] AST(SGOT) 21 13 - 40 U/L [facility] LAB[facility]ORY eGFR Calculation 136.6 mL/min/1.73m2 [facility] [place] eGFR Calculation 165.5 mL/min/1.73m2 [facility] ([facility]) [facility] LAB[facility] Specimen Blood - VENOUS Narrative Performed At Association of Glomerular Filtration Rate (GFR) [facility] LABORATORY and Staging of Kidney Disease* + + +- + | GFR (mL/min/1.73 m2) | With Kidney Damage | Without Kidney Damage + + +- + | >90 | Stage one | Normal + + +- + | 60-89 | Stage two | Decreased GFR + + +- + | 30-59 | Stage three | Stage three + + +- + | 15-29 | Stage four | Stage four + + +- + | <15 (or dialysis) | Stage five | Stage five + + +- + *Each stage assumes the associated GFR level has been in effect for at least three months. Stages 1 to 5, with or without kidney disease, indicate chronic kidney disease. Notes: Determination of stages one and two (with eGFR >59mL/min/1.73 m2) requires estimation of kidney damage for at least three months as defined by structural or functional abnormalities of the kidney, manifested by either: Pathological abnormalities or Markers of kidney damage (including abnormalities in the composition of the blood or urine or abnormalities in imaging tests). Performing Organization Address City/State/Zipcode Phone Number [facility] CLIA: [id number] [place] [address] documented in this encounter Visit Diagnoses Diagnosis Influenza A - Primary Influenza with other respiratory manifes tations Right upper quadrant abdominal pain Abdominal pain, right upper quadrant documented in this encounter Administered Medications Medication Order MAR Action Action Date Dose Rate Site sodium chloride (NS) injection 5 mL 5 mL, Intravenous, PRN, Starting 01/25/20 at 1047, Until Discontinued, Routine, IV line flushing Medication Order MAR Action Action Date Dose Rate Site iohexol (OMNIPAQUE 350 BULK-150 Given 01/25/2020 12:08 PM AROMATHERAPIST 12 0 mL mL) injection 120 mL 120 mL, Intravenous, ONCE, 1 dose, 01/25/20 at 1215, Routine morpHINE injection 4 mg Given 01/25/2020 11:17 AM AROMATHERAPIST 4 mg 4 mg, Slow IV Push, ONCE, 1 dose, 01/25/20 at 1215, STAT ondansetron (ZOFRAN (PF)) injection 4 mg Given 01/25/2020 11:17 AM AROMATHERAPIST 4 mg 4 mg, Slow IV Push, ONCE, 1 dose, 01/25/20 at 1215, ELI documented in this encounter Additional Health Concerns Infection Onset Date Last Indicated Resolved Time COVID-19 Rule Out 01/25/2020 01/25/2020 01/25/2020 11: 39 AM AROMATHERAPIST documented as of this encounter"
[2020-01-29] MEDS ORDERED: MORPHINE 4 MG/ML SYR ONE (17:33)
[2020-01-29] MEDS ORDERED: ONDANSETRON 4 MG/2 ML VIAL ONE (17:33)
[2020-01-29] MEDS ORDERED: FAMOTIDINE 20 MG/2 ML VIAL IV ONE (17:33)
[2020-01-29 17:46] LABS: Absolute Lymphocytes (CBC) 2.1 K/uL (0.7-4.9); Basophils % 0.4 % (0-1.3); Hematocrit 47.8 % (39.6-49.0); Lymphocytes % 19.8 % (15.3-44.8); MPV 9.3 fL (7.6-11.3); RBC Red Blood Cell Count 5.69 M/uL (4.33-5.43)
[2020-01-29 18:11] LABS: ALT/SGPT 26 U/L (12-78); Albumin 4.1 g/dL (3.4-5.0); Alkaline Phosphatase 102 U/L (45-117); BUN Blood Urea Nitrogen 13 mg/dL (7-18); Bicarbonate 28 mmol/L (21-32); Bilirubin Direct 0.1 mg/dL (0-0.2); Bilirubin Total 0.7 mg/dL (0.2-1.0); Glucose Level 272 mg/dL (74-106); Lipase 93 U/L (73-393); Potassium 4.6 mmol/L (3.5-5.1); Protein, Total 7.4 g/dL (6.4-8.2); Sodium Level 137 mmol/L (136-145)
[2020-01-29 18:12] LABS: AST/SGOT 19 U/L (15-37)
--- NOTE | 2020-01-29 19:05 | RAD REPORT ---
EXAM DESCRIPTION: CTAbdomen Pelvis W Contrast - 01/29/2020 6:43 pm CLINICAL HISTORY: Abdominal pain. ABD PAIN COMPARISON: No comparisons TECHNIQUE: Biphasic CT imaging of the abdomen and pelvis was performed with 100 ml non-ionic IV cont rast. All CT scans are performed using dose optimization technique as appropriate and may include automated exposure control or mA/KV adjustment according to patient size. FINDINGS: The lung bases are clear. The liver, spleen, pancreas, adrenal glands and kidneys are within normal limits. No bowel obstruction, free air, free fluid or abscess. Significant fecal retention throughout the col on noted. The appendix is normal. No evidence of significant lymphadenopathy. No suspicious bony findings. IMPRESSION: Significant fecal retention throughout the colon.
--- NOTE | 2020-01-29 19:14 | EDPHYS ---
Physician Documentation [facility] Name: Max Perdomo Age: 34 yrs Sex: Male : 1985 Arrival Date: 01/29/2020 Time: 14:42 Bed 7 Private MD: ED Physician Sonny Rivera HPI: 01/28 17:03 This 34 yrs old Male presents to ER via EMS with complaints of Abdominal Pain.pm1 17:03 The patient presents with abdominal pain in the upper abdomen. Onset: The pm1 symptoms/episode began/occurred 9 month(s) ago. The symptoms do not radiate. Associated signs and symptoms: Pertinent positives: nausea and vomiting, Pertinent negatives: chest pain, diarrhea, shortness of breath. The symptoms are described as achy. Modifying factors: The symptoms are alleviated by nothing, the symptoms are aggravated by nothing. Severity of pain: in the emergency department the pain is actually worse. The patient has been recently seen by a physician: with similar presenting complaints, and apparently given a diagnosis of abdominal pain by [facility] ER. Had labs and CT scan. Historical: - Allergies: 15:12 No Known Allergies; ca1 - Home Meds: 15:12 Humulin 70/30 100 unit/mL (70-30) Sub-Q susp [Active]; ca1 - PMHx: 15:12 Diabetes - IDDM; ca1 - PSHx: 15:12 None; ca1 - Immunization history:: Adult Immunizations up to date, Flu vaccine is not up to date. - Social history:: Smoking status: Patient reports the use of cigarette tobacco products, smokes one-half pack cigarettes per day. ROS: 17:03 Constitutional: Negative for fever, chills, and weight loss, Cardiovascular: Negative pm1 for chest pain, palpitations, and edema, Respiratory: Negative for shortness of breath, cough, wheezing, and pleuritic chest pain. 17:03 Back: Negative for injury and pain, : Negative for injury, bleeding, discharge, and swelling, MS/Extremity: Negative for injury and deformity, Skin: Negative for injury, rash, and discoloration, Neuro: Negative for headache, weakness, numbness, tingling, and seizure. 17:03 Abdomen/GI: Positive for abdominal pain, nausea and vomiting, Negative for diarrhea, constipation. Exam: 17:03 Constitutional: This is a well developed, well nourished patient who is awake, alert, pm1 and in no acute distress. Head/Face: Normocephalic, atraumatic. 17:03 Back: No spinal tenderness. No costovertebral tenderness. Full range of motion. Skin: Warm, dry with normal turgor. Normal color with no rashes, no lesions, and no evidence of cellulitis. MS/ Extremity: Pulses equal, no cyanosis. Neurovascular intact. Full, normal range of motion. 17:03 Cardiovascular: Exam negative for acute changes, Rate: normal, Rhythm: regular, Pulses: no pulse deficits are appreciated. 17:03 Respiratory: Exam negative for acute changes, respiratory distress, shortness of breath. 17:03 Abdomen/GI: Inspection: abdomen appears normal, Palpation: soft, in all quadrants, mild abdominal tenderness, in the epigastric area. 17:03 Neuro: Exam negative for acute changes, Orientation: is normal, Mentation: is normal, Motor: is normal, moves all fours. Vital Signs: 15:09 BP 137 / 97; Pulse 79; Resp 16 S; Temp 99(TE); Pulse Ox 100% on R/A; Weight 63.5 kg ca1 (R); Height 5 ft. 7 in. (170.18 cm) (R); Pain 9/10; 17:36 BP 140 / 93; Pulse 87; Resp 18; Pulse Ox 100% on R/A; ph 19:17 BP 114 / 88; Pulse 83; Resp 16; Pulse Ox 99% on R/A; lp1 15:09 Body Mass Index 21.93 (63.50 kg, 170.18 cm) ca1 MDM: 16:55 Patient medically screened. pm1 17:03 Data reviewed: vital signs. pm1 19:12 Counseling: I had a detailed discussion with the patient and/or guardian regarding: the pm1 historical points, exam findings, and any diagnostic results supporting the discharge/admit diagnosis, lab results, radiology results, the need for outpatient follow up, to return to the emergency department if symptoms worsen or persist or if there are any questions or concerns that arise at home. 01/28 15:29 Order name: Glucose, Ancillary Testing; Complete Time: 16:55 EDMS 01/28 16:58 Order name: Basic Metabolic Panel; Complete Time: 18:16 pm1 01/28 16:58 Order name: CBC with Diff; Complete Time: 18:16 pm1 01/28 16:58 Order name: Hepatic Function; Complete Time: 18:16 pm1 01/28 16:58 Order name: Lipase; Complete Time: 18:16 pm1 01/28 17:03 Order name: CT Abd/Pelvis - IV Contrast Only; Complete Time: 19:12 pm1 01/28 16:58 Order name: IV Saline Lock; Complete Time: 17:30 pm1 01/28 16:58 Order name: Labs collected and sent; Complete Time: 17:30 pm1 Administered Medications: 07:35 Drug: morphine 4 mg Route: IVP; Site: left antecubital; ph 19:18 Follow up: Response: No adverse reaction ph 17:31 Drug: Pepcid 20 mg Route: IVP; Site: left antecubital; ph 19:18 Follow up: Response: No adverse reaction ph 17:33 Drug: Zofran (Ondansetron) 4 mg Route: IVP; Site: left antecubital; ph 19:19 Follow up: Response: No adverse reaction ph Disposition: 01/29 09:32 Co-signature as Attending Physician, Sonny Rivera MD. rn Disposition: 01/29/20 19:13 Discharged to Home. Impression: Constipation, Unspecified abdominal pain. - Condition is Stable. - Discharge Instructions: Abdominal Pain, Adult, Constipation, Adult. - Prescriptions for Bentyl 20 mg Oral Tablet - take 1 tablet by ORAL route every 6 hours As needed; 20 tablet. Zofran 4 mg Oral Tablet - take 1 tablet by ORAL route every 12 hours As needed; 20 tablet. Lactulose 10 gram/15 mL Oral Solution - take 30 milliliter by ORAL route once daily; 300 milliliter. - Medication Reconciliation Form, Thank You Letter, Antibiotic Education, Prescription Opioid Use form. - Follow up: Emergency Department; When: As needed; Reason: Worsening of condition. Follow up: Private Physician; When: 2 - 3 days; Reason: Recheck today's complaints, Continuance of care, Re-evaluation by your physician. - Problem is new. - Symptoms have improved. Signatures: Dispatcher [employer] EDMS Sonny Rivera MD MD rn Pena, Laura, RN RN lp1 Aliza Pfeiffer RN RN ph Anand Rutledge, FORMS ANALYST FORMS ANALYST pm1 Acob, Liana, RN RN ca1 Corrections: (The following items were deleted from the chart) 01/28 19:40 19:13 01/29/2020 19:13 Discharged to Home. Impression: Constipation; Unspecified lp1 abdominal pain. Condition is Stable. Forms are Medication Reconciliation Form, Thank You Letter, Antibiotic Education, Prescription Opioid Use. Follow up: Emergency Department; When: As needed; Reason: Worsening of condition. Follow up: Private Physician; When: 2 - 3 days; Reason: Recheck today's complaints, Continuance of care, Re-evaluation by your physician. Problem is new. Symptoms have improved. pm1
--- NOTE | 2020-01-29 19:14 | ER ---
Nurse's Notes [facility] Name: Max Perdomo Age: 34 yrs Sex: Male : 1985 Arrival Date: 01/29/2020 Time: 14:42 Bed 7 Private MD: Diagnosis: Constipation;Unspecified abdominal pain Presentation: 01/28 14:42 Chief complaint: EMS states: Abdominal pain with diabetes IDDM. He vomited once this ca1 morning. Abdominal pain has been an on going issue, went to [facility] for the same thing. Hasn't had a BM in a week. BGL 271. Risk Assessment: Do you want to hurt yourself or someone else? Patient reports no desire to harm self or others. 14:42 Method Of Arrival: EMS: [facility] ca1 14:42 Acuity: KAILA 3 ca1 15:09 Chief complaint: Patient states: RUQ pain started this morning after breakfast. ca1 Coronavirus screen: Client denies travel out of the [place] in the last 14 days. nausea, vomiting. Client presents with at least one sign or symptom that may indicate coronavirus-19. Standard/surgical mask placed on the client. Provider contacted for isolation considerations. Ebola Screen: Patient negative for fever greater than or equal to 101.5 degrees Fahrenheit, and additional compatible Ebola Virus Disease symptoms Patient denies exposure to infectious person. Patient denies travel to an Ebola-affected area in the 21 days before illness onset. No symptoms or risks identified at this time. Initial Sepsis Screen: Does the patient meet any 2 criteria? No. Patient's initial sepsis screen is negative. Does the patient have a suspected source of infection? No. Patient's initial sepsis screen is negative. Onset of symptoms was January 29, 2020. Historical: - Allergies: 15:12 No Known Allergies; ca1 - Home Meds: 15:12 Humulin 70/30 100 unit/mL (70-30) Sub-Q susp [Active]; ca1 - PMHx: 15:12 Diabetes - IDDM; ca1 - PSHx: 15:12 None; ca1 - Immunization history:: Adult Immunizations up to date, Flu vaccine is not up to date. - Social history:: Smoking status: Patient reports the use of cigarette tobacco products, smokes one-half pack cigarettes per day. Screenin:29 Abuse screen: Denies threats or abuse. Denies injuries from another. Nutritional ph screening: No deficits noted. Tuberculosis screening: No symptoms or risk factors identified. Fall Risk None identified. Assessment: 15:16 Reassessment: BGL in triage 256. ca1 17:28 General: Appears in no apparent distress. uncomfortable, slender, well groomed, ph Behavior is calm, cooperative, appropriate for age, Denies fever, feeling ill. Pain: Complains of pain in right upper quadrant. Neuro: Level of Consciousness is awake, alert, obeys commands, Oriented to person, place, time, situation. Cardiovascular: Capillary refill < 3 seconds Patient's skin is warm and dry. Respiratory: Airway is patent Respiratory effort is even, unlabored, Respiratory pattern is regular, symmetrical. GI: Abdomen is flat, non-distended, Reports upper abdominal pain, nausea, vomiting. Derm: Skin is intact, Skin is pink, warm \T\ dry. Musculoskeletal: Circulation, motion, and sensation intact. Range of motion: intact in all extremities. 19:18 Reassessment: Patient appears in no apparent distress at this time. Neuro: Level of lp1 Consciousness is awake, alert, obeys commands. Cardiovascular: Patient's skin is warm and dry. Respiratory: Respiratory effort is even, unlabored. GI: Abdomen is non-distended, Bowel sounds present X 4 quads. Abd is soft Reports constipation, Last normal BM was 7 days ago. Derm: Skin is pink, warm \T\ dry. Vital Signs: 15:09 BP 137 / 97; Pulse 79; Resp 16 S; Temp 99(TE); Pulse Ox 100% on R/A; Weight 63.5 kg ca1 (R); Height 5 ft. 7 in. (170.18 cm) (R); Pain 9/10; 17:36 BP 140 / 93; Pulse 87; Resp 18; Pulse Ox 100% on R/A; ph 19:17 BP 114 / 88; Pulse 83; Resp 16; Pulse Ox 99% on R/A; lp1 15:09 Body Mass Index 21.93 (63.50 kg, 170.18 cm) ca1 ED Course: 14:42 Patient arrived in ED. ca1 14:45 Triage completed. ca1 15:12 Arm band placed on right wrist. ca1 16:54 Anand Rutledge NP is PHCP. pm1 16:55 Sonny Rivera MD is Attending Physician. pm1 16:55 Aliza Pfeiffer, RN is Primary Nurse. ph 17:29 Patient has correct armband on for positive identification. Bed in low position. Call ph light in reach. Side rails up X 1. Pulse ox on. NIBP on. Door closed. Noise minimized. Warm blanket given. 17:30 Inserted saline lock: 20 gauge in left antecubital area, using aseptic technique. dh3 18:43 CT Abd/Pelvis - IV Contrast Only In Process Unspecified. EDMS 19:19 No provider procedures requiring assistance completed. lp1 19:39 IV discontinued, No redness/swelling at site. Pressure dressing applied. lp1 Administered Medications: 07:35 Drug: morphine 4 mg Route: IVP; Site: left antecubital; ph 19:18 Follow up: Response: No adverse reaction ph 17:31 Drug: Pepcid 20 mg Route: IVP; Site: left antecubital; ph 19:18 Follow up: Response: No adverse reaction ph 17:33 Drug: Zofran (Ondansetron) 4 mg Route: IVP; Site: left antecubital; ph 19:19 Follow up: Response: No adverse reaction ph Outcome: 19:13 Discharge ordered by MD. pm1 19:39 Discharged to home ambulatory. lp1 19:39 Condition: good 19:39 Discharge instructions given to patient, Instructed on discharge instructions, follow up and referral plans. medication usage, Demonstrated understanding of instructions, follow-up care, medications, Prescriptions given X 3. 19:40 Patient left the ED. lp1 Signatures: Dispatcher [employer] EDMS Yin Martin, RN RN lp1 Aliza Pfeiffer, RN RN ph Anand Rutledge NP [employer]ATT[employer] pm1 Gabriela Loar 3 Liana Suárez RN RN ca1
[2020-02-02 13:03] VITALS: TEMP 99
[2020-02-02 13:06] VITALS: BP 114/88; O2SAT 99
== END 2020-01-29 19:40 | disposition home or self-care (01) ==
LOC: ER 14:41
DX: K59.00 Constipation, unspecified (principal); E11.9 Type 2 diabetes mellitus without complications; F17.210 Nicotine dependence, cigarettes, uncomplicated; Z79.4 Long term (current) use of insulin
CPT/HCPCS: 36415; 74177; 80048; 80076; 82947; 83690; 85025; 96374; 96375; 99284; J2405; Q9967

== ENCOUNTER 2020-04-13 12:20 | Inpatient (IN) | payer SELFPAY ==
--- OUTSIDE RECORDS SUMMARY | 2020-04-13 12:22 | XMS REPORT | Continuity of Care Document ---
:1985 Author Organization [facility] t Address [address] [place] [address] Care Team Providers Name Role Phone Jefferson DO Attending Clinician Doctor Unassigned, Name Attending Clinician [...] Facility Department ID 2020-01-25 2020-01-25 Emergency Singer [facility] [id number] 10:29:00 14:32:00 [place] [id number] [place] [id number] [place] [id number] 2020-01-25 2020-01-25 Orders Doctor [place] [id number] 00:00:00 00:00:00 Only UnassignedJASON [id number] [place] [facility] [phone] [id number] Results This patient has no known results.
[2020-04-13 14:23] LABS: Absolute Lymphocytes (CBC) 2.7 K/uL (0.7-4.9); Basophils % 0.2 % (0-1.3); Hematocrit 58.9 % (39.6-49.0); Lymphocytes % 10.7 % (15.3-44.8); MPV 9.6 fL (7.6-11.3); RBC Red Blood Cell Count 6.97 M/uL (4.33-5.43)
[2020-04-13] MEDS ORDERED: ONDANSETRON 4 MG/2 ML VIAL ONE (14:24)
[2020-04-13] MEDS ORDERED: FAMOTIDINE 20 MG/2 ML VIAL IV ONE ×2 (14:24→21:58)
[2020-04-13] MEDS ORDERED: NA CHLORIDE 0.9% 2,000 ML ONE (14:24)
[2020-04-13 14:59] LABS: ALT/SGPT 24 U/L (12-78); AST/SGOT < 3 U/L (15-37); Albumin 4.6 g/dL (3.4-5.0); Alkaline Phosphatase 161 U/L (45-117); BUN Blood Urea Nitrogen 48 mg/dL (7-18); Bicarbonate 21 mmol/L (21-32); Bilirubin Direct 0.1 mg/dL (0-0.2); Bilirubin Total 0.8 mg/dL (0.2-1.0); Lipase 50 U/L (73-393); Potassium 4.8 mmol/L (3.5-5.1); Protein, Total 8.7 g/dL (6.4-8.2); Sodium Level 143 mmol/L (136-145)
[2020-04-13 15:00] LABS: Glucose Level 565 mg/dL (74-106)
[2020-04-13 15:05] LABS: Blood Morphology Comment NOT SEEN (NOT SEEN); Platelet Estimate ADEQ
--- NOTE | 2020-04-13 15:15 | RAD REPORT ---
EXAM DESCRIPTION: [place] Single View04/13/2020 3:01 pm CLINICAL HISTORY: Chest pain/vomiting COMPARISON: 2010 FINDINGS: The left lateral costophrenic sulcus is not included on film is not evaluated. The visualized lungs appear clear of acute infiltrate. The heart is normal size IMPRESSION: No acute abnormalities displayed
[2020-04-13] MEDS ORDERED: GLUCAGON 1 MG/VIAL IM PRN (15:37)
[2020-04-13] MEDS ORDERED: D50W 25 GM/50 ML VIAL IV PRN (15:39)
--- NOTE | 2020-04-13 15:39 | EDPHYS ---
Physician Documentation [facility] Name: Max Perdomo Age: 34 yrs Sex: Male : 1985 Arrival Date: 04/13/2020 Time: 12:21 Bed 15 Private MD: ED Physician Deondre Jalloh HPI: 04/13 14:00 This 34 yrs old Male presents to ER via EMS with complaints of High Blood cp Sugar. 14:00 The patient or guardian reports hyperglycemia, that was potentially precipitated by no cp particular event, Treatment prior to arrival includes: taking additional insulin. Onset: The symptoms/episode began/occurred 4 day(s) ago. Associated signs and symptoms: Pertinent positives: nausea, vomiting, Pertinent negatives: constipation, diarrhea. Current symptoms: In the emergency department the patient's symptoms are unchanged from the initial presentation, despite home interventions. Historical: - Allergies: 13:26 No Known Allergies; iw - PMHx: 12:24 Diabetes - IDDM; iw - PSHx: 12:24 None; iw - Immunization history:: Adult Immunizations unknown. - Social history:: Smoking status: Patient denies any tobacco usage or history of. ROS: 14:05 Constitutional: Positive for poor PO intake, Negative for body aches, chills, fever. cp 14:05 Eyes: Negative for injury, pain, redness, and discharge. cp 14:05 ENT: Negative for ear pain, sore throat, difficulty swallowing, difficulty handling secretions. 14:05 Cardiovascular: Negative for chest pain. 14:05 Respiratory: Positive for cough, Negative for shortness of breath, wheezing. 14:05 Abdomen/GI: Positive for nausea and vomiting, anorexia, Negative for abdominal pain, diarrhea, constipation, black/tarry stool, rectal bleeding. 14:05 Skin: Negative for rash. 14:05 Neuro: Negative for altered mental status, headache. 14:05 All other systems are negative. Exam: 14:10 Constitutional: The patient appears in no acute distress, alert, awake, cp non-diaphoretic, non-toxic, well developed, well nourished, obviously ill. 14:10 Head/Face: Normocephalic, atraumatic. cp 14:10 Eyes: Periorbital structures: appear normal, Pupils: equal, round, and reactive to light and accomodation, Extraocular movements: intact throughout, Conjunctiva: normal, no exudate, no injection, Sclera: no appreciated abnormality, Lids and lashes: appear normal, bilaterally. 14:10 ENT: External ear(s): are unremarkable, Nose: is normal, Mouth: Lips: dry, Oral mucosa: dry, Posterior pharynx: Airway: no evidence of obstruction, patent. 14:10 Neck: ROM/movement: pain, is not appreciated, limited range of motion, is not appreciated, Meningeal signs: are not present. 14:10 Chest/axilla: Inspection: normal, Palpation: is normal, no crepitus, no tenderness. 14:10 Cardiovascular: Rate: tachycardic, Rhythm: regular. 14:10 Respiratory: the patient does not display signs of respiratory distress, Respirations: normal, no use of accessory muscles, no retractions, labored breathing, is not present, Breath sounds: are clear throughout, no decreased breath sounds. 14:10 Abdomen/GI: Inspection: abdomen appears normal, Bowel sounds: active, all quadrants, Palpation: abdomen is soft and non-tender, in all quadrants, rebound tenderness, is not appreciated, voluntary guarding, is not appreciated, involuntary guarding, is not appreciated. 14:10 Back: pain, is absent, ROM is normal. 14:10 Neuro: Orientation: to person, place \\T\\ time. Mentation: able to follow commands, slow to respond, Motor: moves all fours, general weakness with no focal deficits. Vital Signs: 12:21 BP 161 / 93; Pulse 101; Resp 18 S; Pulse Ox 99% on R/A; iw 13:26 BP 134 / 100; Pulse 105; Resp 16; Temp 97.8; Pulse Ox 97% on R/A; Weight 63.5 kg; bp Height 5 ft. 7 in. (170.18 cm); 15:01 BP 144 / 104; Pulse 94; Resp 17; Pulse Ox 100% ; bp 16:00 BP 137 / 115; Pulse 114; Resp 19; Pulse Ox 99% ; bp 13:26 Body Mass Index 21.93 (63.50 kg, 170.18 cm) bp MDM: 13:47 Patient medically screened. cp 15:37 Data reviewed: vital signs, nurses notes, lab test result(s), radiologic studies, plain cp films, and as a result, I will admit patient. Physician consultation: was called at 15:37, was contacted at 15:37, regarding admission, to the ICU, patient's condition, DR Alexandre, hospitalist, will be accepting physician. 04/13 13:29 Order name: Glucose; Complete Time: 14:52 04/13 13:45 Order name: Glucose, Ancillary Testing; Complete Time: 13:48 [facility] 04/13 13:46 Order name: Glucose, Ancillary Testing [facility] 04/13 13:48 Order name: Basic Metabolic Panel; Complete Time: 15:08 04/13 13:48 Order name: CBC with Diff; Complete Time: 15:08 04/13 14:30 Interpretation: Normal except: WBC 24.80; RBC 6.97; HGB 19.5; HCT 58.9; CARLOS% 83.1; LYM% cp 10.7; NEUT A 20.6; MNA 1.5. 04/13 13:48 Order name: Hepatic Function; Complete Time: 15:08 04/13 13:48 Order name: Lipase; Complete Time: 15:08 04/13 13:48 Order name: Ketone, Serum; Complete Time: 15:08 04/13 14:37 Interpretation: Abnormal: ACET MODERATE. 04/13 13:59 Order name: Urine Microscopic Only 04/13 13:59 Order name: UDS 04/13 13:59 Order name: Urine Microscopic Only [facility] 04/13 13:59 Order name: Urine Drug Screen [facility] 04/13 14:51 Order name: Magnesium; Complete Time: 15:08 [facility] 04/13 14:52 Order name: LAB Add On 04/13 15:05 Order name: Manual Differential; Complete Time: 15:08 [facility] 04/13 15:14 Order name: COVID-19 : Document "Date of Symptom Onset" if Symptomatic. 04/13 15:14 Order name: Blood Culture Adult (2) 04/13 15:14 Order name: Lactate; Complete Time: 00:50 04/13 15:14 Order name: Influenza Screen (a \\T\\ B) 04/13 15:14 Order name: Procalcitonin; Complete Time: 00:50 04/13 16:03 Order name: Basic Metabolic Panel [facility] 04/13 16:03 Order name: Basic Metabolic Panel; Complete Time: 00:50 EDMS 04/13 16:03 Order name: Basic Metabolic Panel; Complete Time: 00:50 EDMS 04/13 16:03 Order name: Basic Metabolic Panel EDMS 04/13 16:03 Order name: Calcium Level EDMS 04/13 16:03 Order name: Calcium Level EDMS 04/13 16:03 Order name: Calcium Level EDMS 04/13 16:03 Order name: Calcium Level EDMS 04/13 16:03 Order name: Lipid Profile EDMS 04/13 16:03 Order name: Lipid Profile EDMS 04/13 14:26 Order name: XRAY Chest (1 view); Complete Time: 15:34 cp 04/13 16:03 Order name: Magnesium EDMS 04/13 16:03 Order name: Magnesium EDMS 04/13 16:03 Order name: Magnesium EDMS 04/13 16:04 Order name: Magnesium EDMS 04/13 17:08 Order name: Transferrin Sat/Iron Binding; Complete Time: 00:50 EDMS 04/13 17:16 Order name: Glucose, Ancillary Testing; Complete Time: 00:50 EDMS 04/13 18:29 Order name: Glucose, Ancillary Testing; Complete Time: 00:50 EDMS 04/13 19:41 Order name: COVID-19/FLU A+B; Complete Time: 00:50 EDMS 04/13 19:47 Order name: Glucose, Ancillary Testing; Complete Time: 00:50 EDMS 04/13 21:43 Order name: Glucose, Ancillary Testing; Complete Time: 00:50 EDMS 04/13 23:30 Order name: Glucose, Ancillary Testing; Complete Time: 00:50 EDMS 04/14 01:37 Order name: Glucose, Ancillary Testing EDMS 04/14 03:31 Order name: Glucose, Ancillary Testing EDMS 04/14 04:11 Order name: Glucose, Ancillary Testing EDMS 04/14 06:27 Order name: Glucose, Ancillary Testing EDMS 04/14 07:23 Order name: CBC with Automated Diff EDMS 04/14 07:29 Order name: Basic Metabolic Panel EDMS 04/14 07:39 Order name: T4 Free EDMS 04/14 07:39 Order name: Thyroid Stimulating Hormone EDMS 04/14 07:50 Order name: Procalcitonin EDMS 04/14 07:54 Order name: Glucose, Ancillary Testing EDMS 04/14 07:58 Order name: Hemoglobin A1c [facility] 04/14 10:54 Order name: Potassium EDIA 04/14 12:07 Order name: Glucose, Ancillary Testing [facility] 04/13 13:48 Order name: IV Saline Lock; Complete Time: 14:01 04/13 13:48 Order name: Labs collected and sent; Complete Time: 14:01 04/13 13:59 Order name: IV; Complete Time: 14:01 04/13 16:04 Order name: CONS Pharmacy Consult [facility] 04/13 16:04 Order name: NPO EDIA Administered Medications: 14:10 Drug: NS 0.9% 1000 ml Route: IV; Rate: 1 bolus; Site: right forearm; bp 14:10 Drug: Zofran (Ondansetron) 4 mg Route: IVP; Site: right forearm; bp 15:25 Follow up: Response: No adverse reaction bp 14:10 Drug: Pepcid 20 mg Route: IVP; Site: right forearm; bp 15:25 Follow up: Response: No adverse reaction bp 14:10 Drug: NS 0.9% 1000 ml Route: IV; Rate: 1 bolus; Site: right forearm; bp 15:30 Drug: Insulin Regular Human 10 units {Co-Signature: iw (Rosanna Trujillo RN).} Route: bp IVP; Site: right antecubital; 17:15 Follow up: Response: No adverse reaction bp 15:30 Drug: Rocephin 1 grams Route: IV; Rate: calculated rate; Site: right antecubital; bp 17:15 Follow up: IV Status: Completed infusion; IV Intake: 50ml bp 15:30 Drug: Zithromax 500 mg Route: IVPB; Infused Over: 1 hrs; Site: right antecubital; bp 17:15 Follow up: IV Status: Completed infusion; IV Intake: 250ml bp 15:30 Drug: NS 0.9% 1000 ml Route: IV; Rate: 1 bolus; Site: right antecubital; bp 17:14 Follow up: IV Status: Completed infusion; IV Intake: 1000ml bp 15:30 Drug: Insulin Drip - (Insulin Regular Human 100 units, NS 0.9% 100 ml) {Co-Signature: bp iw (Rosanna Trujillo RN).} Route: IV; Rate: 6 units/hr; Site: right antecubital; 17:14 Follow up: IV Status: Infusion continued upon admission bp Point of Care Testing: Blood Glucose: 13:46 Blood Glucose: High (>450 mg/dL); iw Ranges: Critical Glucose Levels:Adult <50 mg/dl or >400 mg/dl <40 mg/dl or >180 mg/dl Disposition: 04/13/20 15:38 Hospitalization ordered by Chaz Alexandre for Inpatient Admission. Preliminary diagnosis is Diabetes mellitus due to underlying condition with ketoacidosis. - Bed requested for [email or web address] ER HOLD. - Status is Inpatient Admission. rb3 - Condition is Fair. - Problem is new. - Symptoms have improved. Addendum: 04/16/2020 06:00 Co-signature as Attending Physician, Deondre Jalloh MD I agree with the assessment and k dr plan of care. Signatures: Dispatcher [employer] EDMS Deondre Jalloh MD MD [facility] Rosanna Trujillo RN RN iw Lawrence Caldwell PA PA cp Matt Braswell RN RN bp Damaris Louis, JARED RN rb3 Rosanna Trujillo RN iw Corrections: (The following items were deleted from the chart) 04/13 14:30 14:30 Normal except: WBC 24.80; RBC 6.97; HGB 19.5; HCT 58.9; CARLOS% 83.1; LYM% 10.7. cp cp 14:30 14:30 Normal except: WBC 24.80; RBC 6.97; HGB 19.5; HCT 58.9; CARLOS% 83.1; LYM% 10.7; cp NEUT A 20.6. cp 17:24 15:38 Hospitalization Ordered by Chaz Alexandre MD for Inpatient Admission. Preliminary bp diagnosis is Diabetes mellitus due to underlying condition with ketoacidosis. Bed requested for Intensive Care Unit. Status is Inpatient Admission. Condition is Fair. Problem is new. Symptoms have improved. cp 04/14 13:51 04/13 17:24 04/13/2020 15:38 Hospitalization Ordered by Chaz Alexandre MD for Inpatient rb3 Admission. Preliminary diagnosis is Diabetes mellitus due to underlying condition with ketoacidosis. Bed requested for [facility] [[email or web address] ER HOLD. Status is Inpatient Admission. Condition is Fair. Problem is new. Symptoms have improved. bp
--- NOTE | 2020-04-13 15:39 | ER ---
Nurse's Notes [facility] Name: Max Perodmo Age: 34 yrs Sex: Male : 1985 Arrival Date: 04/13/2020 Time: 12:21 Bed 15 Private MD: Diagnosis: Diabetes mellitus due to underlying condition with ketoacidosis Presentation: 04/13 12:21 Chief complaint: EMS states: ex- called 911 bc his blood sugar was reading "HI" on iw monitor, pt had not been eating for 4 days , not taking his insulin X 2 days. ex- administered 20 units Novolin prior to EMS arrival , BS was 333 after insulin, EMS states pt was not eating ot taking insulin bc he just didn't feel like it. Coronavirus screen: At this time, the client does not indicate any symptoms associated with coronavirus-19. Ebola Screen: Patient negative for fever greater than or equal to 101.5 degrees Fahrenheit, and additional compatible Ebola Virus Disease symptoms Patient denies exposure to infectious person. Patient denies travel to an Ebola-affected area in the 21 days before illness onset. No symptoms or risks identified at this time. Initial Sepsis Screen: Does the patient meet any 2 criteria? No. Patient's initial sepsis screen is negative. Does the patient have a suspected source of infection? No. Patient's initial sepsis screen is negative. Risk Assessment: Do you want to hurt yourself or someone else? Patient reports no desire to harm self or others. 12:21 Method Of Arrival: EMS: [facility] iw 12:21 Acuity: KAILA 3 iw 13:26 Acuity: KAILA 2 iw 13:26 Onset of symptoms was April 09, 2020. iw 13:28 Chief complaint: Patient states: has not had appetite X 4 days, states he throws up iw when he tries to eat, also having acid reflux, BS was reading HI at home , states he has been taking his inulin but his BS is still high. Triage Assessment: 13:30 General: Appears distressed, uncomfortable, Behavior is cooperative, appropriate for bp age, drowsy. Pain: Complains of pain in GENERALIZED MYALGIA. EENT: No deficits noted. Neuro: No deficits noted. Cardiovascular: No deficits noted. Respiratory: No deficits noted. GI: Reports nausea, vomiting. : No signs and/or symptoms were reported regarding the genitourinary system. Derm: No deficits noted. Musculoskeletal: No deficits noted. Historical: - Allergies: 13:26 No Known Allergies; iw - PMHx: 12:24 Diabetes - IDDM; iw - PSHx: 12:24 None; iw - Immunization history:: Adult Immunizations unknown. - Social history:: Smoking status: Patient denies any tobacco usage or history of. Screenin:30 Abuse screen: Denies threats or abuse. Denies injuries from another. Nutritional bp screening: No deficits noted. Tuberculosis screening: No symptoms or risk factors identified. Fall Risk None identified. Assessment: 13:30 General: SEE TRIAGE NOTE. bp 15:01 Reassessment: No changes from previously documented assessment. Patient and/or family bp updated on plan of care and expected duration. Pain level reassessed. Patient is alert, oriented x 3, equal unlabored respirations, skin warm/dry/pink. IVF INFUSING. 16:00 Reassessment: No changes from previously documented assessment. Patient and/or family bp updated on plan of care and expected duration. Pain level reassessed. Patient is alert, oriented x 3, equal unlabored respirations, skin warm/dry/pink. ADMIT MD AT B/S. 17:00 Reassessment: SEE [facility]. bp Vital Signs: 12:21 BP 161 / 93; Pulse 101; Resp 18 S; Pulse Ox 99% on R/A; iw 13:26 BP 134 / 100; Pulse 105; Resp 16; Temp 97.8; Pulse Ox 97% on R/A; Weight 63.5 kg; bp Height 5 ft. 7 in. (170.18 cm); 15:01 BP 144 / 104; Pulse 94; Resp 17; Pulse Ox 100% ; bp 16:00 BP 137 / 115; Pulse 114; Resp 19; Pulse Ox 99% ; bp 13:26 Body Mass Index 21.93 (63.50 kg, 170.18 cm) bp ED Course: 12:21 Patient arrived in ED. iw 12:24 Triage completed. iw 13:30 Matt Braswell, JARED is Primary Nurse. bp 13:30 Lawrence Caldwell PA is PHCP. cp 13:30 Deondre Jalloh MD is Attending Physician. cp 13:30 Arm band placed on. bp 13:30 Patient has correct armband on for positive identification. Bed in low position. Call bp light in reach. Side rails up X2. 14:10 Inserted saline lock: 20 gauge in right forearm, using aseptic technique. Blood bp collected. 15:02 XRAY Chest (1 view) In Process Unspecified. EDMS 15:38 Chaz Alexandre MD is Hospitalizing Provider. cp 17:14 No provider procedures requiring assistance completed. Patient admitted, IV remains in bp place. 04/14 13:42 IV discontinued, intact, bleeding controlled, No redness/swelling at site. Pressure rb3 dressing applied. Administered Medications: 04/13 14:10 Drug: NS 0.9% 1000 ml Route: IV; Rate: 1 bolus; Site: right forearm; bp 14:10 Drug: Zofran (Ondansetron) 4 mg Route: IVP; Site: right forearm; bp 15:25 Follow up: Response: No adverse reaction bp 14:10 Drug: Pepcid 20 mg Route: IVP; Site: right forearm; bp 15:25 Follow up: Response: No adverse reaction bp 14:10 Drug: NS 0.9% 1000 ml Route: IV; Rate: 1 bolus; Site: right forearm; bp 15:30 Drug: Insulin Regular Human 10 units {Co-Signature: iw (Rosanna Trujillo RN).} Route: bp IVP; Site: right antecubital; 17:15 Follow up: Response: No adverse reaction bp 15:30 Drug: Rocephin 1 grams Route: IV; Rate: calculated rate; Site: right antecubital; bp 17:15 Follow up: IV Status: Completed infusion; IV Intake: 50ml bp 15:30 Drug: Zithromax 500 mg Route: IVPB; Infused Over: 1 hrs; Site: right antecubital; bp 17:15 Follow up: IV Status: Completed infusion; IV Intake: 250ml bp 15:30 Drug: NS 0.9% 1000 ml Route: IV; Rate: 1 bolus; Site: right antecubital; bp 17:14 Follow up: IV Status: Completed infusion; IV Intake: 1000ml bp 15:30 Drug: Insulin Drip - (Insulin Regular Human 100 units, NS 0.9% 100 ml) {Co-Signature: bp iw (Rosanna Trujillo RN).} Route: IV; Rate: 6 units/hr; Site: right antecubital; 17:14 Follow up: IV Status: Infusion continued upon admission bp Point of Care Testing: Blood Glucose: 13:46 Blood Glucose: High (>450 mg/dL); iw Ranges: Intake: 17:14 IV: 1000ml; Total: 1000ml. bp 17:15 IV: 250ml; Total: 1250ml. bp 17:15 IV: 50ml; Total: 1300ml. bp Outcome: 15:38 Decision to Hospitalize by Provider. cp 17:14 Admitted to ER Hold. Please see [facility] for further documentation. bp 17:14 Condition: stable 17:14 Instructed on the need for admit. 04/14 13:42 Discharged to home ambulatory. rb3 Condition: stable Discharge instructions given to patient, Instructed on discharge instructions, follow up and referral plans. medication usage, Demonstrated understanding of instructions, follow-up care, medications, Prescriptions given X 2. 13:51 Patient left the ED. rb3 Signatures: Dispatcher [employer] EDMS Rosanna Trujillo RN RN iw Lawrence Caldwell PA PA Matt Ptoter RN RN bp Damaris Louis RN RN rb3 Rosanna Trujillo RN iw Corrections: (The following items were deleted from the chart) 04/13 18:36 13:26 BP 134 / 100; Pulse 105bpm; Resp 16bpm; Pulse Ox 97% RA; Temp 97.8F; iw bp
[2020-04-13] MEDS ORDERED: INSULIN -REGULAR HUMAN 100 UNIT in NA CHLORIDE 0.9% 100 ML IV SCH (15:45)
[2020-04-13] MEDS ORDERED: ONDANSETRON 4 MG/2 ML VIAL IV PRN (15:58)
[2020-04-13] MEDS ORDERED: AZITHROMYCIN IV 500 MG in NA CHLORIDE 0.9% 250 ML IVPB ONE (16:00)
[2020-04-13] MEDS ORDERED: D5.45NS W/KCL 20MEQ 1,000 ML IV SCH (16:00)
[2020-04-13] MEDS: NS KCL 20MEQ 1,000 ML IV SCH ×2 (16:00→18:00)
[2020-04-13] MEDS ORDERED: NACHLORIDE 0.45% 1,000 ML IV SCH (16:00)
[2020-04-13] MEDS ORDERED: NA CHLORIDE 0.9% 1,000 ML ONE (16:03)
[2020-04-13] MEDS ORDERED: INSULIN -REGULAR HUMAN 50 UNIT/0.5 ML ML ONE (16:03)
[2020-04-13] MEDS ORDERED: CEFTRIAXONE/SWI 1gm 1 GM/10 ML SYR ONE (16:03)
--- NOTE | 2020-04-13 16:05 | P.HP ---
Certification for Inpatient Patient admitted to: Inpatient With expected LOS: >2 Midnights Patient will require the following post-hospital care: None Practitioner: I am a practitioner with admitting privileges, knowledge of patient current condition, hospital course, and medical plan of care. Services: Services provided to patient in accordance with Admission requirements found in Title 42 Section 412.3 of the Code of Federal Regulations Patient History Date of Service: 04/13/20 Reason for admission: DKA, volume depletion, N/V. History of Present Illness: 34 y o male pt with hx of insulin dependent diabetes who was evaluated in the ED for episode of N/V and feeling of unwellness. he reported feeling nauseus with vomiting episodes for 2 days. he also had abd discomfort and cough with fever. he denied any diarrhea, syncope, rash or chest pain.Labs in the ED was concerning for elevated blood glucose of >500 and he had a gap of 21. He was started on DKA protocol and was admitted for inpt care. Allergies No Known Allergies Allergy (Unverified 04/13/20 15:36) Home medications list reviewed: Yes - Past Medical/Surgical History Diabetic: Yes Review of Systems General: Fever, Chills, Weakness, Malaise Eyes: Unremarkable ENT: Unremarkable Respiratory: Cough Cardiovascular: Unremarkable Gastrointestinal: Nausea, Vomiting, Abdominal Pain Physical Examination - Physical Exam General: Alert, Oriented x3, Mild distress, Other (lethargic) HEENT: Atraumatic, Normocephalic Neck: Supple Respiratory: Clear to auscultation bilaterally Cardiovascular: Regular rate/rhythm, Normal S1 S2 Gastrointestinal: Soft and benign Musculoskeletal: No swelling Neurological: Normal speech, Normal strength at 5/5 x4 extr, Sensation intact, Cranial nerves 3-12 intact - Studies Laboratory Data (last 24 hrs) 04/13/20 14:00: WBC 24.80 H*, Hgb 19.5 H, Hct 58.9 H, Plt Count 379 04/13/20 14:00: Sodium 143, Potassium 4.8, BUN 48 H, Creatinine 1.91 H, Glucose 565 H*, Magnesium 3.0 H D, Total Bilirubin 0.8, AST < 3 L, ALT 24, Alkaline Phosphatase 161 H, Lipase 50 L 04/13/20 14:00: Glucose 577 H* Assessment and Plan - Plan 1.DKA- meets criteria with gap of 21. DKA insulin and IV fluid started per protocol. we will follow electrolyte per protocol. 2.Diabetes with hyperglycemia- poor blood glucose control evidenced by hyperglycemia. we will use iv insulin till gap is closed then start long acting insulin. 3.N/V- deemed due to DKA. we will start antiemetic drug of zofran. 4.Sepsis- suspected based on presentation. we will start empiric antibiotic of rocephin. 5.Erythrocytosis- pt has a family hx of hemochromatosis. hb is 19. we think he is hemoconcentrated but we will also work up for hemochromatosis with iron studies. we will hydrate and monitor hb level closely. Discharge Plan: Home - Advance Directives Does patient have a Living Will: No Does patient have a Durable POA for Healthcare: No
[2020-04-13 17:00] LABS: Potassium 4.8 mmol/L (3.5-5.1)
[2020-04-13] MEDS: ENOXAPARIN 40 MG/0.4 ML SQ SCH (17:00)
[2020-04-13 18:36] VITALS: BMI 21.9
[2020-04-13] MEDS ORDERED: NS KCL 20 MEQ IV ONE (18:40)
[2020-04-13] MEDS ORDERED: ENOXAPARIN 40 MG/0.4 ML SQ ONE (18:48)
[2020-04-13] MEDS ORDERED: INFLUENZA VACCINE (for 3y+) 0.5 ML DOSE IMVAC ONE (19:00)
[2020-04-13 19:41] LABS: SARS-COV-2 RT PCR NEGATIVE (NEGATIVE)
[2020-04-13 21:28] LABS: Potassium 4.4 mmol/L (3.5-5.1)
[2020-04-13] MEDS ORDERED: FAMOTIDINE 20 MG/2 ML VIAL IV PRN (21:29)
[2020-04-13] MEDS ORDERED: MORPHINE 2 MG/ML SYR IV PRN (21:29)
[2020-04-13] MEDS ORDERED: MORPHINE 2 MG/ML SYR ONE (21:58)
[2020-04-13] MEDS ORDERED: D5 0.45 NS 1,000 ML IV ONE (23:56)
[2020-04-14] MEDS ORDERED: INSULIN -REGULAR HUMAN 50 UNIT/0.5 ML ML ONE ×3 (01:52→09:20)
[2020-04-14 04:15] LABS: Potassium 4.1 mmol/L (3.5-5.1)
[2020-04-14] MEDS: INSULIN -REGULAR HUMAN 50 UNIT/0.5 ML ML SQ SCH ×3 (04:18→11:30)
[2020-04-14] MEDS ORDERED: NACHLORIDE 0.45% 1,000 ML IV ONE (05:57)
[2020-04-14] MEDS ORDERED: NACHLORIDE 0.45% 1,000 ML IV SCH (06:00)
[2020-04-14] MEDS ORDERED: NA CHLORIDE 0.9% 1,000 ML IV ONE (06:52)
[2020-04-14 07:00] LABS: Magnesium 1.9 mg/dL (1.8-2.4)
[2020-04-14] MEDS ORDERED: NA CHLORIDE 0.9% 1,000 ML ONE (07:06)
[2020-04-14 07:20] LABS: Absolute Lymphocytes (CBC) 3.2 K/uL (0.7-4.9); Basophils % 0.2 % (0-1.3); Hematocrit 38.9 % (39.6-49.0); Lymphocytes % 19.8 % (15.3-44.8); MPV 8.7 fL (7.6-11.3); RBC Red Blood Cell Count 4.73 M/uL (4.33-5.43)
[2020-04-14 07:28] LABS: Potassium 3.7 mmol/L (3.5-5.1)
[2020-04-14 07:39] LABS: Thyroid Stimulating Hormone 0.504 uIU/mL (0.360-3.740)
[2020-04-14] MEDS ORDERED: NPH (HUMAN) 100 UNITS/ML INSULIN SQ SCH (08:00)
[2020-04-14] MEDS ORDERED: CEFTRIAXONE/SWI 1gm 1 GM/10 ML SYR IVP SCH (09:00)
[2020-04-14] MEDS: ENOXAPARIN 40 MG/0.4 ML SQ SCH (09:00)
[2020-04-14] MEDS ORDERED: NPH (HUMAN) 100 UNITS/ML INSULIN SQ ONE (09:22)
[2020-04-14] MEDS ORDERED: POTASSIUM CL SA 10 MEQ TAB PO ONE ×2 (09:23→09:33)
[2020-04-14] MEDS ORDERED: CEFTRIAXONE/SWI 1gm 1 GM/10 ML SYR ONE (09:24)
[2020-04-14] MEDS ORDERED: ENOXAPARIN 40 MG/0.4 ML SQ ONE (09:24)
--- NOTE | 2020-04-14 11:51 | P.DS ---
Admission Date: 04/13/20 Discharge Date: 04/14/20 Primary Care Provider: none Disposition: ROUTINE DISCHARGE Discharge Condition: GOOD Reason for Admission: DKA, volume depletion, N/V. Consultations: none Procedures: COVID/Influenza: Negative CXR: FINDINGS: The left lateral costophrenic sulcus is not included on film is not evaluated. The visualized lungs appear clear of acute infiltrate. The heart is normal size IMPRESSION: No acute abnormalities displayed Medical Problem List: Diabetic ketoacidosis with history of diabetes mellitus type 1 with poor compliance Nausea, vomiting with dehydration related to above and acute renal injury Brief History of Present Illness: 34-year-old male with history of diabetes mellitus type 1. Patient presented with increased nausea, vomiting. He is not able to fill his medications. Patient found to have DKA. Chest x-ray unremarkable. Patient admitted for treatment. Patient started on DKA protocol. Hospital Course: Patient presented with increased nausea and vomiting. Patient also had been without his insulin medication. Patient with type 1 diabetes. Patient was admitted for DKA. Patient was treated with aggressive IV fluids and DKA protocol. DKA resolved. Patient reports that he has no PCP. No evidence of infection or sepsis noted. Blood pressure remained stable. Patient remained afebrile. Patient was empirically treated with antibiotics. Pro calcitonin unremarkable. Chest x-ray unremarkable. COVID/Influenza test negative. UDS pending at discharge. Diabetic education provided. Hemoglobin A1c 13.2. Compliance with medication addressed in detail. At discharge patient will continue with insulin NPH 10 units subcu twice daily and insulin regular mild sliding scale. Recommend to monitor blood sugars at least twice daily. Recommend to maintain blood sugars less than 140 fasting and less than 200 after meals. If blood sugars remain above 200 he may increase Lantus by 1-2 units for better control. Patient plans to establish care with a PCP. Local PCP-Dr. Gaviira was able to come by and provide information. Recommend to follow up with PCP-Dr. Gaviria in 1 week to follow up this hospitalization and continue his care. Vital Signs/Physical Exam: Temp Pulse Resp BP Pulse Ox 99.3 F 73 16 140/75 98 04/14/20 04:00 04/14/20 04:00 04/14/20 04:00 04/14/20 04:00 04/14/20 04:00 General: Alert, In no apparent distress, Oriented x3, Cooperative HEENT: Atraumatic Neck: Supple Respiratory: Clear to auscultation bilaterally, Normal air movement Cardiovascular: Normal pulses, Regular rate/rhythm Gastrointestinal: Normal bowel sounds, Soft and benign, Non-distended, No tenderness, No masses, No rebound, No guarding Neurological: Normal speech, Normal strength at 5/5 x4 extr, Normal tone, Normal affect Laboratory Data at Discharge: WBC 16.10 K/uL (4.3-10.9) H D 04/14/20 07:05 Hgb 13.5 g/dL (13.6-17.9) L D 04/14/20 07:05 Hct 38.9 % (39.6-49.0) L D 04/14/20 07:05 Plt Count 225 K/uL (152-406) D 04/14/20 07:05 Sodium 150 mmol/L (136-145) H 04/14/20 07:05 Potassium 3.5 mmol/L (3.5-5.1) 04/14/20 10:31 BUN 30 mg/dL (7-18) H 04/14/20 07:05 Creatinine 1.03 mg/dL (0.55-1.3) 04/14/20 07:05 Glucose 192 mg/dL (74-106) H 04/14/20 07:05 Magnesium 1.9 mg/dL (1.8-2.4) D 04/14/20 05:17 Total Bilirubin 0.8 mg/dL (0.2-1.0) 04/13/20 14:00 AST < 3 U/L (15-37) L 04/13/20 14:00 ALT 24 U/L (12-78) 04/13/20 14:00 Alkaline Phosphatase 161 U/L (45-117) H 04/13/20 14:00 Triglycerides 66 mg/dL (<150) 04/14/20 05:17 Cholesterol 96 mg/dL (<200) 04/14/20 05:17 HDL Cholesterol 46 mg/dL (40-60) 04/14/20 05:17 Cholesterol/HDL Ratio 2.09 04/14/20 05:17 Lipase 50 U/L (73-393) L 04/13/20 14:00 Home Medications: Insulin -Regular Human [Novolin -R*] See Protocol SQ ACHS #1 vial 04/14/20 Insulin NPH Human [Novolin N (Humulin N)*] 10 units SQ BIDWM #1 vial 04/14/20 New Medications: Insulin -Regular Human [Novolin -R*] See Protocol SQ ACHS #1 vial Insulin NPH Human [Novolin N (Humulin N)*] 10 units SQ BIDWM #1 vial Physician Discharge Instructions: Patient presented with increased nausea and vomiting. Patient also had been without his insulin medication. Patient with type 1 diabetes. Patient was admitted for DKA. Patient was treated with aggressive IV fluids and DKA protocol. DKA resolved. Patient reports that he has no PCP. No evidence of infection or sepsis noted. Blood pressure remained stable. Patient remained afebrile. Patient was empirically treated with antibiotics. Pro calcitonin unremarkable. Chest x-ray unremarkable. COVID/Influenza test negative. UDS pending at discharge. Diabetic education provided. Hemoglobin A1c 13.2. Compliance with medication addressed in detail. At discharge patient will continue with insulin NPH 10 units subcu twice daily and insulin regular mild sliding scale. Recommend to monitor blood sugars at least twice daily. Recommend to maintain blood sugars less than 140 fasting and less than 200 after meals. If blood sugars remain above 200 he may increase Lantus by 1-2 units for better control. Patient plans to establish care with a PCP. Local PCP-Dr. Gaviria was able to come by and provide information. Recommend to follow up with PCP-Dr. Gaviria in 1 week to follow up this hospitalization and continue his care. Diet: ADA Activity: Ad chuck Followup: Unknown,U [Primary Care Provider] - Time spent managing pt's care (in minutes): 55
[2020-04-14 13:40] VITALS: BP 141/85; TEMP 98
[2020-04-14 14:33] VITALS: O2SAT 99
[2020-04-14] MEDS ORDERED: INSULIN 70/30 100 UNITS/ML SQ SCH (17:00)
[2020-04-14] MEDS ORDERED: INSULIN 70/30 100 UNITS/ML SQ ONE (22:40)
== END 2020-04-14 13:45 | disposition home or self-care (01) | DRG 638 ==
LOC: ER 12:20 → ERHOLD 15:59
PROVIDERS: ADMIT Internal Medicine Nephrology; ATTEND Family Medicine
DX: E10.10 Type 1 diabetes mellitus with ketoacidosis without coma (principal); N17.9 Acute kidney failure, unspecified; D75.1 Secondary polycythemia; E86.0 Dehydration; Z91.14 Patient's other noncompliance with medication regimen; Z79.4 Long term (current) use of insulin; Z20.822 Contact with and (suspected) exposure to COVID-19
CPT/HCPCS: 0240U; 36415; 71045; 80048; 80061; 80076; 82010; 82310; 82947; 83036; 83540; 83605; 83690; 83735; 84132; 84145; 84439; 84443; 84466; 85025; 87040; 94010; 99285; J0456; J0696; J1650; J1815; J2270; J2405; J3480; J7030; J7050; J7799